=== PATIENT | female | born 1940 | race Caucasian/White ===

== ENCOUNTER 2019-02-09 02:18 | Outpatient (CLI) | payer MEDICARE, OTHER, SELFPAY ==
[2019-02-09 09:12] LABS: HCT 42.4 % (36.0-46.0); HGB 14.1 g/dL (12.0-15.5); Mean Corp. HGB Concentration 33.3 g/dL (32.0-36.0); Mean Corpuscular Hemoglobin 29.7 pg (27.0-33.0); Mean Corpuscular Volume 89.3 fL (80-95); Mean Platelet Volume 10.2 fL (8.0-11.0); Platelet Count 221 x1000/uL (130-400); RBC 4.75 m/cumm (4.00-5.20); RBC Distribution Width 13.9 % (11.7-14.6); White Blood Cell Count 4.72 k/cumm (4.4-10.8)
[2019-02-09 10:27] LABS: TSH (W/Ref FT4) 0.83 uIU/mL (0.358-3.74)
[2019-02-09 10:43] LABS: ALT 24 U/L (12-78); AST 11 U/L (15-37); Albumin 3.4 g/dL (3.4-5.0); Alkaline Phosphatase 110 U/L (46-116); Anion Gap 8.7 mmol/L (3-11); BUN 15 mg/dL (7-18); Bilirubin, Total 0.8 mg/dL (0.2-1.0); CO2 28.3 mmol/L (21.0-32.0); CREATININE 0.88 mg/dL (0.55-1.02); Calcium 8.7 mg/dL (8.5-10.1); Chloride 107 mmol/L (98-107); Cholesterol 156 mg/dL (50-200); Glucose 102 mg/dL (70-100); HDL Cholesterol 72 mg/dL (40-60); LDL CHOLESTEROL 68 mg/dL (<100); Potassium 4.2 mmol/L (3.5-5.1); Sodium 144 mmol/L (136-145); Triglyceride 47 mg/dL (30-150); Vitamin B12 893 pg/mL (193-986)
== END 2019-02-09 02:38 ==
PROVIDERS: PCP Student in an Organized Health Care Education/Training Program; Visit Provider Student in an Organized Health Care Education/Training Program
DX: I10 Essential (primary) hypertension (principal); F31.9 Bipolar disorder, unspecified; G47.9 Sleep disorder, unspecified; R53.83 Other fatigue; M79.671 Pain in right foot
CPT/HCPCS: 80053; 80061; 83721; 85027; 82607; 84443

== ENCOUNTER → 2019-03-15 09:14 | Outpatient (BNVA) | payer MEDICARE, OTHER, SELFPAY | PROVIDERS: PCP Student in an Organized Health Care Education/Training Program; Referring Provider Student in an Organized Health Care Education/Training Program; Visit Provider Orthopaedic Surgery | DX: M75.101 Unspecified rotator cuff tear or rupture of right shoulder, not specified as traumatic (principal); M75.102 Unspecified rotator cuff tear or rupture of left shoulder, not specified as traumatic; I10 Essential (primary) hypertension | CPT/HCPCS: 20610; 99211; 99213; J1040 ==

== ENCOUNTER 2019-04-06 19:36 | Emergency (ER) | payer MEDICARE, OTHER, SELFPAY ==
[2019-04-06 19:46] VITALS: BP 152/81; PULSE 69; RESP 16; TEMP 36.9; O2SAT 96
--- NOTE | 2019-04-06 20:37 | ED.GENADUL_ITS ---
Discharge Plan Disposition Patient Disposition: HOME Condition: Good Discharge Details Chief Complaint: Orthopedic Clinical Impression: Fracture of toe of right foot Primary Care Provider: Jes Whitney ED Provider: Geraldo Elizabeth Meds and New Rx's Prescriptions: Continued mirtazapine [Remeron] 15 mg tablet 15 mg PO DAILY Qty: 90 RF: 4 omega-3 fatty acids-fish oil 1 EACH capsule 1 cap PO DAILY RF: 0 CALTRATE-600 WITH VIT D TAB 1 EACH tablet 1 tab PO DAILY RF: 0 vitamin B complex [B Complex-Vitamin B12] 1 EACH tablet 2 ea PO DAILY Qty: 180 RF: 0 Varicella-Zoster Ge/As01b/Pf [Shingrix Vial Kit] 50 MCG INJ 50 mcg IM ONCE Qty: 1 RF: 0 atorvastatin 10 mg tablet 10 mg PO DAILY Qty: 90 RF: 3 levothyroxine 75 mcg tablet 75 mcg PO DAILY Qty: 90 RF: 3 losartan-hydrochlorothiazide 50-12.5 mg tablet 1 tab PO DAILY Qty: 90 RF: 3 lamotrigine 100 mg tablet 100 mg PO BID Qty: 180 RF: 1 Discharge Instructions Additional Instructions: Jessica tape toes together with padding in between as I have done. Wear the postop boot. Ice for pain and swelling. Tylenol or Motrin for pain. Follow-up with orthopedics. Return to ED if problems. Referrals: Yefri Jang MD [ [facility] STAFF PHYSICIAN] - Discharge Data Discharge Date/Time-TO BE ENTERED AT DEPARTURE: 04/06/19 21:36 Medical Decision Making X-ray was obtained of the right foot. There is a fracture of the proximal phalanx of the big toe. It is intra-articular but at this point is well aligned. 2 x 2 gauze placed between her big toe and second toe. Toes were jessica taped together. Postop shoe ordered. Case discussed briefly with Dr. Jang. He looked at the x-rays and briefly saw the patient. She may weight- bear as tolerated with the postop shoe. Follow-up with orthopedics in a couple of weeks. HPI General Mode of arrival: ambulatory . Date/Time Provider Initiated Documentation: 04/06/19 20:34 . Limitations to Documentation: no limitations . Information obtained by: patient . HPI Narrative: Patient presents to ED with right big toe pain and swelling. She reports missing the last step on her stairs yesterday and her foot buckled under her. She reports that her big toe was turned inward over the tops of her other toes on the right foot. She was slowly able to eventually put a flip-flop on which seem to straighten the toe out a little bit. Today she had to mow her lawn which she did accomplish. She states that seemed to make the toe even straighter. However her friends noticed her foot tonight with it being black and blue and swollen and told her she should come into the ED. Related Data Home Medications Medication Instructions Recorded Confirmed Caltrate-600 With Vit D Tab 1 tab PO DAILY 12/31/12 03/15/19 omega-3 fatty acids-fish oil 1 cap PO DAILY 12/31/12 04/06/19 vitamin B complex [B 2 ea PO DAILY #180 tab-cap 03/05/18 04/06/19 Complex-Vitamin B12] mirtazapine 15 mg tablet 15 mg PO DAILY #90 tab 08/20/18 03/15/19 atorvastatin 10 mg tablet 10 mg PO DAILY #90 tab 08/25/18 04/06/19 levothyroxine 75 mcg tablet 75 mcg PO DAILY #90 tab 08/25/18 04/06/19 losartan 50 mg-hydrochlorothiazide 1 tab PO DAILY #90 tab-cap 11/26/18 04/06/19 12.5 mg tablet lamotrigine 100 mg tablet 100 mg PO BID #180 tab-cap 03/22/19 04/06/19 Previous Rx's Medication Instructions Recorded vitamin B complex [B 2 ea PO DAILY #180 tab-cap 03/05/18 Complex-Vitamin B12] mirtazapine 15 mg tablet 15 mg PO DAILY #90 tab 08/20/18 atorvastatin 10 mg tablet 10 mg PO DAILY #90 tab 08/25/18 levothyroxine 75 mcg tablet 75 mcg PO DAILY #90 tab 08/25/18 losartan 50 mg-hydrochlorothiazide 1 tab PO DAILY #90 tab-cap 11/26/18 12.5 mg tablet lamotrigine 100 mg tablet 100 mg PO BID #180 tab-cap 03/22/19 Allergies Allergy/AdvReac Type Severity Reaction Status Date / Time acetaminophen AdvReac Intermediate weird Verified 02/09/19 11:05 [From Excedrin Migraine] feeling aspirin AdvReac Intermediate weird Verified 02/09/19 11:05 [From Excedrin Migraine] feeling caffeine AdvReac Intermediate weird Verified 02/09/19 11:05 [From Excedrin Migraine] feeling lisinopril AdvReac Intermediate dry cough Verified 02/09/19 11:05 lithium AdvReac Intermediate balance Verified 02/09/19 11:05 disturbance fluoxetine HCl [From Prozac] AdvReac Mild Dizzy, Verified 02/09/19 11:05 Body felt strange trazodone AdvReac Unknown dry heaves Verified 02/09/19 11:05 General Stated Complaint: Orthopedic MIGUEL: 4 Review of Systems Review of Systems As documented in HPI otherwise negative as below. Const: no fever, chills, weakness Resp: no cough, SOB, pleuritic pain CV: no CP, diaphoresis, edema, syncope GI: no abdominal pain, nausea, vomiting, diarrhea Neuro: no headache, numbness, focal weakness, confusion PFSH Medical History Bipolar 1 disorder HTN (hypertension) Hypothyroidism Surgical History Colonoscopy - IV Sedation (09/16/16) Skin Cancer Removal carpal tunnel release melanoma (09/28/15) Family History Mother No problems noted. Father No problems noted. 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 physical activity do you participate in: walking Duration: 15-30 minutes/day Frequency: 3-4 times per week Seatbelt use: always Helmet use: Yes Drive intox or ride w/intox electric pile driver operator: No Water heater temp set <120 deg: Yes Working smoke detector in home: Yes Fire extinguisher in home: Yes Carbon monox detector in home: No Firearms in home: Yes Firearms unloaded and locked: Yes Do you feel safe at home: Yes Do you feel safe in your relationship?: Yes Victim of physical abuse: No Victim of emotional abuse: Yes ( can be difficult at times ) Victim of sexual abuse: No Would you like helpful sources: No Exam Const General: cooperative and no acute distress Orientation: alert and oriented x3 Skin General skin exam: ecchymosis Wounds: no wounds Extrem Other: The right foot has significant swelling and ecchymosis to the big toe itself. It is swollen with decreased range of motion due to the swelling. She has no tenderness in the foot itself. The other toes are unremarkable. Sensation is intact. Course Vital Signs Temperature 98.4 F 04/06/19 19:46 Pulse 69 04/06/19 19:46 Respiratory Rate 16 04/06/19 19:46 Blood Pressure 152/81 H 04/06/19 19:46 Pulse Oximetry 96 04/06/19 19:46 Temperature 98.4 F 04/06/19 19:46 Temperature Source Tympanic 04/06/19 19:46 Pulse 69 04/06/19 19:46 Respiratory Rate 16 04/06/19 19:46 Respiratory Effort Non-Labored 04/06/19 19:55 Blood Pressure 152/81 H 04/06/19 19:46 Pulse Oximetry 96 04/06/19 19:46 Pain Level 8 04/06/19 19:46 Comment 04/06/19 19:46
--- NOTE | 2019-04-06 20:45 | DI.RAD_ITS ---
SYMPTOM/DIAGNOSIS: TRAUMA, BRUISE, SWELLING RIGHT FOOT: Three views. There is a comminuted fracture involving the distal aspect of the proximal phalanx of the great toe. The fracture shows mild displacement and involves the interphalangeal joint. No other fracture or dislocation is seen. There are mild degenerative changes of the foot. There is soft tissue swelling of the great toe. IMPRESSION: Comminuted intra-articular, mildly displaced fracture involving the proximal phalanx of the great toe.
--- NOTE | 2019-04-06 21:09 | DI.VRAD_ITS ---
EXAM: XR Right Foot Complete EXAM DATE/TIME: 04/06/2019 8:34 PM CLINICAL HISTORY: 78 years old, female; Injury or trauma; Fall; Initial encounter; Blunt trauma; Injury date: 04/05/19; Injury details: Right foot trauma yesterday, swelling and bruising right great toe. TECHNIQUE: Imaging protocol: XR Right foot. Views: 3 or more views. COMPARISON: No relevant prior studies available. FINDINGS: Bones/joints: Oblique comminuted fracture extending to joint space is distal first proximal phalanx. Bifid sesamoid bone immediately beneath head of first metatarsal favored to be a variant of development. No subluxation. Hammertoe deformities of second through fifth digits. Bones are well-mineralized. Soft tissues: Soft tissue swelling in the great toe. Vasculature: Vascular calcifications. IMPRESSION: Fracture of first proximal phalanx. Dictated and Authenticated by: William Ryan MD. Ordering:MEENU Chow MD
--- NOTE | 2019-04-06 21:13 | NUR.NOTE ---
Nursing Note: Placed women's large walking shoe on r foot after dr. socorro lopez taped toes.
[2019-04-06 21:37] VITALS: BP 152/81; PULSE 69; RESP 16; O2SAT 96
--- NOTE | 2019-04-06 22:38 | OCONE_ITS ---
Date of service: 04/06/19 Time of Service: 09:38 History of Present Illness Chief Complaint: Right toe injury Narrative: Jennyfer is a 78-year-old who stepped awkwardly, missing us last step. When she did she hit the medial aspect of the right great toe. This caused the toe to go into an acute valgus position per her report. She slowly working back straight and place her foot into a sandal which help straighten the toe out. She continued to hobble on this foot for 2 days. However, the pain in the swelling became more intense today so she presented to the emergency department. She has had some stiffness and pain in the foot before but has been mild. She denies any numbness or tingling. He has been able to ambulate on her heel primarily. She has notable pain if she tries to move her big toe or pushoff with her big toe. She has had ecchymosis and swelling and redness. Consults Consult date: 04/06/19 Requesting physician: Geraldo Elizabeth Consult Reason Right Great Toe Fracture Assessment and Plan (1) Fracture of proximal phalanx of right great toe: Start date: 04/04/19 Current visit: No Status: Acute Jennyfer is a 78-year-old who suffered an intra-articular fracture of her right great toe proximal phalanx. X-rays performed in the emergency department show the fracture is an oblique fracture of the distal aspect of the proximal phalanx with extension into the IP joint of the great toe. The joint appears congruous without significant step-off. The displacement was likely greater, however, she did the reduction maneuver already on her own. I would encourage her to keep some type of bolster in between the first and second toes to buttress the fracture. We can then jessica tape the great toe to the second toe a nd placed into a postop shoe. She should heal weight-bear. This does have a chance of displacing further but currently instance in a acceptable position. I will see her back in 1 week for repeat x-rays. Qualifiers: Encounter type: initial encounter Fracture type: closed Fracture alignment: displaced Qualified Code(s): S92.411A - Displaced fracture of proximal phalanx of right great toe, initial encounter for closed fracture Review of Systems Review of Systems All systems reviewed & are unremarkable except as noted in HPI and below PFSH Medical History Bipolar 1 disorder HTN (hypertension) Hypothyroidism Surgical History Colonoscopy - IV Sedation (09/16/16) Skin Cancer Removal carpal tunnel release melanoma (09/28/15) Family History Mother No problems noted. Father No problems noted. 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 physical activity do you participate in: walking Duration: 15-30 minutes/day Frequency: 3-4 times per week Seatbelt use: always Helmet use: Yes Drive intox or ride w/intox special events driver: No Water heater temp set <120 deg: Yes Working smoke detector in home: Yes Fire extinguisher in home: Yes Carbon monox detector in home: No Firearms in home: Yes Firearms unloaded and locked: Yes Do you feel safe at home: Yes Do you feel safe in your relationship?: Yes Victim of physical abuse: No Victim of emotional abuse: Yes ( can be difficult at times ) Victim of sexual abuse: No Would you like helpful sources: No Exam Const General: cooperative, healthy appearing, comfortable and no acute distress Nutritional Appearance: average body habitus Orientation: alert, awake and oriented x3 Extrem Other: Evaluation of the right foot shows a hyperemic and swollen right great toe. There is no subungual hematoma. There is pain to palpation. The overall alignment of the great toe appears normal. There is a wedge between the first and second toes but no gross rotational abnormality appreciated. Motion was not tested at this time. Capillary refill less than 2 seconds. Skin is taut and swollen. Results Last Vital Signs Temp 36.9 C 04/06/19 19:46 Pulse 69 04/06/19 21:37 Resp 16 04/06/19 21:37 BP 152/81 H 04/06/19 21:37 Pulse Ox 96 04/06/19 21:37
== END 2019-04-06 21:36 | disposition home or self-care (01) ==
PROVIDERS: Emergency Provider Emergency Medicine; PCP Student in an Organized Health Care Education/Training Program
DX: S92.411A Displaced fracture of proximal phalanx of right great toe, initial encounter for closed fracture (principal); W10.8XXA Fall (on) (from) other stairs and steps, initial encounter; I10 Essential (primary) hypertension
CPT/HCPCS: 28510; 99253; 73630

== ENCOUNTER 2019-04-13 13:53 | Outpatient (CLI) | payer MEDICARE, OTHER, SELFPAY ==
--- NOTE | 2019-04-13 12:54 | DI.RAD_ITS ---
SYMPTOMS/DIAGNOSIS: FX RT GREAT TOE RIGHT FOOT: When compared with the 04/06/19 exam, again noted is the mildly displaced comminuted intra-articular fracture of the proximal phalanx of the great toe. There has been no appreciable change in the apposition or alignment of the fracture when compared with the previous study.
== END 2019-04-13 14:13 ==
PROVIDERS: PCP Student in an Organized Health Care Education/Training Program; Referring Provider Student in an Organized Health Care Education/Training Program; Visit Provider Student in an Organized Health Care Education/Training Program
DX: S92.411A Displaced fracture of proximal phalanx of right great toe, initial encounter for closed fracture (principal); X50.9XXA Other and unspecified overexertion or strenuous movements or postures, initial encounter
CPT/HCPCS: 99213; 73630

== ENCOUNTER → 2019-04-14 13:43 | Outpatient (BNVA) | payer MEDICARE, OTHER, SELFPAY | PROVIDERS: PCP Student in an Organized Health Care Education/Training Program; Referring Provider Student in an Organized Health Care Education/Training Program; Visit Provider Orthopaedic Surgery | DX: M75.82 Other shoulder lesions, left shoulder (principal); M75.81 Other shoulder lesions, right shoulder; Z98.890 Other specified postprocedural states | CPT/HCPCS: 99211; 99213 ==

== ENCOUNTER 2019-04-27 13:21 | Outpatient (CLI) | payer MEDICARE, OTHER, SELFPAY ==
--- NOTE | 2019-04-27 13:07 | DI.RAD_ITS ---
SYMPTOMS/DIAGNOSIS: F/U RIGHT GREAT TOE FX RIGHT FOOT: There has been no change in the apposition or alignment of the fracture involving the distal metaphysis of the proximal phalanx of the great toe. There is nothing to suggest that healing is not progressing satisfactorily at the present time.
== END 2019-04-27 13:41 ==
PROVIDERS: PCP Student in an Organized Health Care Education/Training Program; Referring Provider Student in an Organized Health Care Education/Training Program; Visit Provider Student in an Organized Health Care Education/Training Program
DX: S92.411A Displaced fracture of proximal phalanx of right great toe, initial encounter for closed fracture (principal); W10.9XXA Fall (on) (from) unspecified stairs and steps, initial encounter
CPT/HCPCS: 99213; 73630

== ENCOUNTER 2019-05-18 14:45 | Outpatient (CLI) | payer MEDICARE, OTHER, SELFPAY ==
--- NOTE | 2019-05-18 14:39 | DI.RAD_ITS ---
SYMPTOMS/DIAGNOSIS: F/U FX RIGHT FOOT: Three views were obtained. The previously described fracture of the proximal phalanx of the great toe is again noted with no gross interval change in alignment of the fracture fragments in comparison with examination of April 27. There appears to be mild callus formation at the fracture site.
== END 2019-05-18 15:05 ==
PROVIDERS: PCP Student in an Organized Health Care Education/Training Program; Referring Provider Student in an Organized Health Care Education/Training Program; Visit Provider Student in an Organized Health Care Education/Training Program
DX: S92.411D Displaced fracture of proximal phalanx of right great toe, subsequent encounter for fracture with routine healing (principal); W10.8XXD Fall (on) (from) other stairs and steps, subsequent encounter
CPT/HCPCS: 99213; 73630

== ENCOUNTER 2019-07-30 08:45 | Emergency (ER) | payer MEDICARE, OTHER, SELFPAY ==
[2019-07-30 08:51] VITALS: BP 173/101; PULSE 87; RESP 18; TEMP 36.6; O2SAT 98
[2019-07-30 09:00] VITALS: BP 164/85
--- NOTE | 2019-07-30 09:25 | ED.GENADUL_ITS ---
Discharge Plan Disposition Patient Disposition: HOME Condition: Stable Discharge Details Chief Complaint: Cellulitis Clinical Impression: Finger infection Primary Care Provider: Jes Whitney ED Provider: Robbie Davenport Home Meds and New Rx's Prescriptions: Continued clindamycin HCl 300 mg capsule 300 mg PO TID Qty: 30 RF: 0 omega-3 fatty acids-fish oil 1 EACH capsule 1 cap PO DAILY RF: 0 CALTRATE-600 WITH VIT D TAB 1 EACH tablet 1 tab PO DAILY RF: 0 vitamin B complex [B Complex-Vitamin B12] 1 EACH tablet 2 ea PO DAILY Qty: 180 RF: 0 Varicella-Zoster Ge/As01b/Pf [Shingrix Vial Kit] 50 MCG INJ 50 mcg IM ONCE Qty: 1 RF: 0 atorvastatin 10 mg tablet 10 mg PO DAILY Qty: 90 RF: 3 levothyroxine 75 mcg tablet 75 mcg PO DAILY Qty: 90 RF: 3 losartan-hydrochlorothiazide 50-12.5 mg tablet 1 tab PO DAILY Qty: 90 RF: 3 lamotrigine 100 mg tablet 100 mg PO BID Qty: 180 RF: 1 Discharge Instructions Instructions: Cellulitis (ED) Additional Instructions: Please do once daily warm soaks and dressing change. Follow-up in clinic for recheck if not improving in 5 days time. Continue clindamycin. May use Tylenol and ibuprofen as needed for pain. Keep the hand above the level of the heart to reduce pain and discomfort from swelling. Return if develop a fever, worsening swelling, or any other acute concern. Medical Decision Making 79-year-old female with 3 days of right ring finger swelling and pain after reaching under a shrub to retrieve a ball. She was placed on clindamycin yesterday in clinic. Now with pointing fluctuance. Consented, cleansed, anesthetized with local 1.5 cc lidocaine. Incised 11 blade with approximately 1 to 2 cc of purulent fluid. Cultured and sent to lab. We will have her continue the clindamycin. She will do daily soaks and dressing changes at home. She understands return precautions. HPI General Mode of arrival: ambulatory . Date/Time Provider Initiated Documentation: 07/30/19 09:02 . Limitations to Documentation: no limitations . Information obtained by: patient . History of Present Illness 79 year old F presents to the emergency department with the chief complaint of Right hand infection x3 days, on antibiotics 1 day, Quality is described as dull, and is localized to the right and upper extremity. Patient reports no radiation. Patient started experiencing this hour(s) and it has been constant. No relieving factors improve symptom(s), No exacerbating factors reported . Patient notes no other symptoms.. Patient did receive the following treatments prior to arrival, other (Clindamycin x1 day) Related Data Home Medications Medication Instructions Recorded Confirmed Caltrate-600 With Vit D Tab 1 tab PO DAILY 12/31/12 07/29/19 omega-3 fatty acids-fish oil 1 cap PO DAILY 12/31/12 07/30/19 vitamin B complex [B 2 ea PO DAILY #180 tab-cap 03/05/18 07/30/19 Complex-Vitamin B12] atorvastatin 10 mg tablet 10 mg PO DAILY #90 tab 08/25/18 07/30/19 levothyroxine 75 mcg tablet 75 mcg PO DAILY #90 tab 08/25/18 07/30/19 losartan 50 mg-hydrochlorothiazide 1 tab PO DAILY #90 tab-cap 11/26/18 07/30/19 12.5 mg tablet lamotrigine 100 mg tablet 100 mg PO BID #180 tab-cap 03/22/19 07/30/19 clindamycin HCl 300 mg capsule 300 mg PO TID #30 cap 07/29/19 07/30/19 Previous Rx's Medication Instructions Recorded vitamin B complex [B 2 ea PO DAILY #180 tab-cap 03/05/18 Complex-Vitamin B12] atorvastatin 10 mg tablet 10 mg PO DAILY #90 tab 08/25/18 levothyroxine 75 mcg tablet 75 mcg PO DAILY #90 tab 08/25/18 losartan 50 mg-hydrochlorothiazide 1 tab PO DAILY #90 tab-cap 11/26/18 12.5 mg tablet lamotrigine 100 mg tablet 100 mg PO BID #180 tab-cap 03/22/19 clindamycin HCl 300 mg capsule 300 mg PO TID #30 cap 07/29/19 Allergies Allergy/AdvReac Type Severity Reaction Status Date / Time acetaminophen AdvReac Intermediate weird Verified 07/30/19 08:54 [From Excedrin Migraine] feeling aspirin AdvReac Intermediate weird Verified 07/30/19 08:54 [From Excedrin Migraine] feeling caffeine AdvReac Intermediate weird Verified 07/30/19 08:54 [From Excedrin Migraine] feeling lisinopril AdvReac Intermediate dry cough Verified 07/30/19 08:54 lithium AdvReac Intermediate balance Verified 07/30/19 08:54 disturbance fluoxetine HCl [From Prozac] AdvReac Mild Dizzy, Verified 07/30/19 08:54 Body felt strange trazodone AdvReac Unknown dry heaves Verified 07/30/19 08:54 General Stated Complaint: Cellulitis MIGUEL: 4 Review of Systems Narrative: No fever, chills, drainage. 4 systems reviewed and otherwise negative [facility] Medical History Bipolar 1 disorder HTN (hypertension) Hypothyroidism Surgical History carpal tunnel release L wrist Colonoscopy - IV Sedation (09/16/16) melanoma (09/28/15) Penny Driscoll nasolabial fold Skin Cancer Removal Dr Jacobsen, multiple excisions Family History Mother No problems noted. Father , [place] at age 74. No problems noted. 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 physical activity do you participate in: walking Duration: 15-30 minutes/day Frequency: 3-4 times per week Seatbelt use: always Helmet use: Yes Drive intox or ride w/intox airport driver: No Water heater temp set <120 deg: Yes Working smoke detector in home: Yes Fire extinguisher in home: Yes Carbon monox detector in home: No Firearms in home: Yes Firearms unloaded and locked: Yes Do you feel safe at home: Yes Do you feel safe in your relationship?: Yes Victim of physical abuse: No Victim of emotional abuse: Yes ( can be difficult at times ) Victim of sexual abuse: No Would you like helpful sources: No Exam Narrative Exam Narrative: GEN: awake, alert, oriented 3. Pleasant, well groomed, interactive. HEAD: Normocephalic, atraumatic ENT: Mucous membranes moist, oropharynx unremarkable, External ear exam unremarkable EYES: PERRL, EOMI NECK: Full ROM, no STAN, no menigismus EXT: Full ROM, right ring finger dorsal surface with erythema and pointing fluctuance is tender to the touch. Neuro: Grossly normal neurologic exam, conversant, interactive. Psych: Speech fluent, thoughts congruent, affect normal Course Vital Signs Vital signs: Vital Signs Temperature 36.6 C 07/30/19 08:51 Pulse 87 07/30/19 08:51 Respiratory Rate 18 07/30/19 08:51 Blood Pressure 173/101 H 07/30/19 08:51 Pulse Oximetry 98 07/30/19 08:51 Temperature 36.6 C 07/30/19 08:51 Temperature Source Skin 07/30/19 08:51 Pulse 87 07/30/19 08:51 Respiratory Rate 18 07/30/19 08:51 Respiratory Effort Non-Labored 07/30/19 08:57 Blood Pressure 164/85 H 07/30/19 09:00 Pulse Oximetry 98 07/30/19 08:51 Pain Level 5 07/30/19 08:51 Procedures Abscess I/D Site: Hand Side (if applicable): Right Local Anesthetic: Lidocaine 1% Amount of anesthesia used (mL): 1.5 Technique: Incised with #11 Blade Irrigation: Yes Packing used?: Plain
--- NOTE | 2019-08-02 08:37 | NUR.NOTE ---
referral faxed to [facility] Internal Medicine, Dr. Scruggs.Nursing Note:
--- NOTE | 2019-08-07 15:45 | W.ED.FU ---
Received skin culture results growing enterococcus gallinarum, sensitive to ampicillin and ciprofloxacin and resistant to vancomycin. Patient received incision and drainage here in the emerge department and was continued on clindamycin. Clindamycin sensitivities not available. I called and spoke with the patient's (patient was not available to speak) - he noted that hand seems much improved. I did provide contact number for the emergency department should she have any questions or concerns.
== END 2019-07-30 09:36 | disposition home or self-care (01) ==
PROVIDERS: Emergency Provider Emergency Medicine; PCP Student in an Organized Health Care Education/Training Program
DX: L03.011 Cellulitis of right finger (principal); I10 Essential (primary) hypertension
CPT/HCPCS: 10060; 87077; 99283; 87070; 87186

== ENCOUNTER 2019-09-12 11:37 | Outpatient (CLI) | payer MEDICARE, OTHER, SELFPAY ==
--- NOTE | 2019-09-12 11:40 | DI.RAD_ITS ---
EXAM: XR ABDOMEN FLAT PLATE INDICATION: assess bowel/gas pattern; concern c. diff, diarrhea, R19.7. COMPARISON: No exams were available for comparison TECHNIQUE: 2D digital imaging was performed. FINDINGS: There is a moderate quantity of stool seen throughout the colon. There is no evidence of wall thicke mark or abnormal colonic or small bowel distention. Degenerative changes are seen in the spine. IMPRESSION: No acute abnormality.
== END 2019-09-12 11:57 ==
PROVIDERS: PCP Student in an Organized Health Care Education/Training Program; Visit Provider Nurse Practitioner Adult Health
DX: R19.7 Diarrhea, unspecified (principal)
CPT/HCPCS: 74018; 87324

== ENCOUNTER 2019-09-13 07:53 | Outpatient (CLI) | payer MEDICARE, OTHER, SELFPAY ==
[2019-09-13 08:42] LABS: Abs Immature Grans 0.04 k/cumm (0.0-0.09); Absolute Basophil Count 0.02 k/cumm (0.0-0.2); Absolute Eosinophil Count 0.13 k/cumm (0.0-0.7); Absolute Lymphocyte Count 0.97 k/cumm (1.2-3.4); Absolute Monocyte Count 0.89 k/cumm (0.11-0.7); Absolute Neutrophil Count 9.18 k/cumm (1.2-6.7); Basophils % 0.2; Eosinophils % 1.2; HCT 40.7 % (36.0-46.0); HGB 13.3 g/dL (12.0-15.5); Immature Grans % 0.4; Lymphocytes % 8.6; Mean Corp. HGB Concentration 32.7 g/dL (32.0-36.0); Mean Corpuscular Hemoglobin 28.7 pg (27.0-33.0); Mean Corpuscular Volume 87.7 fL (80-95); Mean Platelet Volume 9.6 fL (8.0-11.0); Monocytes % 7.9; Neutrophils % 81.7; Platelet Count 235 x1000/uL (130-400); RBC 4.64 m/cumm (4.00-5.20); RBC Distribution Width 13.5 % (11.7-14.6); White Blood Cell Count 11.24 k/cumm (4.4-10.8)
== END 2019-09-13 08:13 ==
PROVIDERS: PCP Student in an Organized Health Care Education/Training Program; Visit Provider Nurse Practitioner Adult Health
DX: A04.72 Enterocolitis due to Clostridium difficile, not specified as recurrent (principal)
CPT/HCPCS: 36415; 85025

== ENCOUNTER 2019-09-16 10:26 | Outpatient (CLI) | payer MEDICARE, OTHER, SELFPAY ==
[2019-09-16 11:07] LABS: Abs Immature Grans 0.04 k/cumm (0.0-0.09); Absolute Basophil Count 0.02 k/cumm (0.0-0.2); Absolute Eosinophil Count 0.18 k/cumm (0.0-0.7); Absolute Lymphocyte Count 0.92 k/cumm (1.2-3.4); Absolute Monocyte Count 0.83 k/cumm (0.11-0.7); Absolute Neutrophil Count 8.25 k/cumm (1.2-6.7); Basophils % 0.2; Eosinophils % 1.8; HCT 41.2 % (36.0-46.0); HGB 13.3 g/dL (12.0-15.5); Immature Grans % 0.4; Mean Corp. HGB Concentration 32.3 g/dL (32.0-36.0); Mean Corpuscular Hemoglobin 28.4 pg (27.0-33.0); Mean Platelet Volume 9.5 fL (8.0-11.0); Monocytes % 8.1; Neutrophils % 80.5; Platelet Count 288 x1000/uL (130-400); RBC 4.68 m/cumm (4.00-5.20); RBC Distribution Width 13.3 % (11.7-14.6); White Blood Cell Count 10.24 k/cumm (4.4-10.8)
[2019-09-16 11:40] LABS: ALT 26 U/L (14-59); AST 18 U/L (15-37); Alkaline Phosphatase 136 U/L (46-116); Anion Gap 7.6 mmol/L (3-11); BUN 9 mg/dL (7-18); Bilirubin, Total 0.7 mg/dL (0.2-1.0); CO2 30.4 mmol/L (21.0-32.0); CREATININE 0.73 mg/dL (0.55-1.02); Calcium 8.7 mg/dL (8.5-10.1); Chloride 105 mmol/L (98-107); Glucose 117 mg/dL (74-106); Potassium 4.1 mmol/L (3.5-5.1); Sodium 143 mmol/L (136-145); Total Protein 5.7 g/dL (6.4-8.2)
== END 2019-09-16 10:46 ==
PROVIDERS: PCP Student in an Organized Health Care Education/Training Program; Visit Provider Nurse Practitioner Adult Health
DX: D72.829 Elevated white blood cell count, unspecified (principal); A04.72 Enterocolitis due to Clostridium difficile, not specified as recurrent
CPT/HCPCS: 36415; 80053; 85025

== ENCOUNTER 2019-09-30 12:26 | Outpatient (CLI) | payer MEDICARE, OTHER, SELFPAY ==
[2019-09-30 13:23] LABS: Abs Immature Grans 0.02 k/cumm (0.0-0.09); Absolute Basophil Count 0.02 k/cumm (0.0-0.2); Absolute Eosinophil Count 0.16 k/cumm (0.0-0.7); Absolute Lymphocyte Count 1.15 k/cumm (1.2-3.4); Absolute Monocyte Count 0.76 k/cumm (0.11-0.7); Absolute Neutrophil Count 8.71 k/cumm (1.2-6.7); Basophils % 0.2; Eosinophils % 1.5; HCT 43.5 % (36.0-46.0); HGB 14.2 g/dL (12.0-15.5); Immature Grans % 0.2 %; Lymphocytes % 10.6; Mean Corp. HGB Concentration 32.6 g/dL (32.0-36.0); Mean Corpuscular Hemoglobin 28.7 pg (27.0-33.0); Mean Corpuscular Volume 87.9 fL (80-95); Neutrophils % 80.5; Platelet Count 300 x1000/uL (130-400); RBC 4.95 m/cumm (4.00-5.20); White Blood Cell Count 10.82 k/cumm (4.4-10.8)
== END 2019-09-30 12:46 ==
PROVIDERS: PCP Student in an Organized Health Care Education/Training Program; Visit Provider Nurse Practitioner Adult Health
DX: A04.71 Enterocolitis due to Clostridium difficile, recurrent (principal)
CPT/HCPCS: 36415; 85025

== ENCOUNTER 2022-01-08 02:59 | Outpatient (CLI) | payer MEDICARE, SELFPAY ==
[2022-01-08 14:02] LABS: ALT 23 U/L (14-59); AST 12 U/L (15-37); Albumin 3.9 g/dL (3.4-5.0); Alkaline Phosphatase 152 U/L (46-116); BUN 15 mg/dL (7-18); Bilirubin, Total 1.6 mg/dL (0.2-1.0); CREATININE 0.8 mg/dL (0.55-1.02); Calcium 9.6 mg/dL (8.5-10.1); Calculated LDL 82 mg/dL (<100); Chloride 104 mmol/L (98-107); Cholesterol 167 mg/dL (<200); Glucose 97 mg/dL (74-106); HDL Cholesterol 70 mg/dL (40-60); Potassium 3.8 mmol/L (3.5-5.1); Sodium 143 mmol/L (136-145); TSH (W/Ref FT4) 0.45 uIU/mL (0.36-3.74); Triglyceride 76 mg/dL (<150)
== END 2022-01-08 03:00 | disposition home or self-care (01) ==
LOC: LBO 03:00
PROVIDERS: PCP Student in an Organized Health Care Education/Training Program; Visit Provider Student in an Organized Health Care Education/Training Program
DX: I10 Essential (primary) hypertension (principal); E03.9 Hypothyroidism, unspecified; Z13.220 Encounter for screening for lipoid disorders
CPT/HCPCS: 36415; 80053; 80061; 84443

== ENCOUNTER 2022-10-10 00:24 | Outpatient (CLI) | payer MEDICARE, SELFPAY ==
--- NOTE | 2022-10-10 07:15 | DI.RAD_ITS ---
Exam(s) XR HIP PELVIS ADULT BL EXAM: XR HIP PELVIS ADULT BL CLINICAL HISTORY: evaluate for stenosis; arthritis,acute bilat low back pain,hip pain,m25.559. TECHNIQUE: 2D digital imaging was performed of the pelvis and bilateral hips. Five images were obta ined. AP pelvis and lateral views of both hips were obtained. COMPARISON: No exams were available for comparison FINDINGS: BONES: No acute fracture is present. No bony destructive lesion is seen. JOINTS: No dislocation present. Mild degenerative changes are seen in the hips bilaterally with joint space narrowing and acetabular spurring. The sacroiliac joints of this pubis are unremarkable. The re are moderate degenerative changes seen in the lower lumbar spine. SOFT TISSUE: Normal. 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 DATA REPOSITORY: RADIATION DOSE DELIVERED:
--- NOTE | 2022-10-10 07:15 | DI.RAD_ITS ---
Exam(s) XR SACRUM EXAM: XR SACRUM CLINICAL HISTORY: evaluate for stenosis; arthritis,acute low back pain,hip pain, m25.559. TECHNIQUE: 2D digital imaging was performed. Three images were obtained. COMPARISON: No exams were available for comparison FINDINGS: BONES: No acute fracture is present. No bony destructive lesion is seen. JOINTS: No dislocation present. There are mild degenerative changes seen at the left sacroiliac joint . Moderate degenerative changes are seen in the visualized lumbar spine. SOFT TISSUE: Vascular calcifications are present. IMPRESSION: 1. Mild degenerative changes of the left SI joint. 2. Moderate degenerative changes in the visualized lumbar spine. DATA REPOSITORY: RADIATION DOSE DELIVERED:
--- NOTE | 2022-10-10 07:15 | DI.RAD_ITS ---
Exam(s) XR SACROILIAC JOINTS EXAM: XR SACROILIAC JOINTS CLINICAL HISTORY: evaluate for stenosis; arthritis,acute low back pain, hip pain, m25.559. TECHNIQUE: 2D digital imaging was performed. Four images were obtained. COMPARISON: No exams were available for comparison FINDINGS: Bones: No fracture is present. No bony destructive lesion is seen. Alignment is satisfactory. SI Joint:No fusions or erosions are seen. There are mild degenerative changes seen in the left SI paige int. Soft Tissue: Normal. 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 DATA REPOSITORY: RADIATION DOSE DELIVERED:
== END 2022-10-10 00:44 ==
LOC: DI 00:24
PROVIDERS: PCP Student in an Organized Health Care Education/Training Program; Visit Provider Student in an Organized Health Care Education/Training Program
DX: M16.0 Bilateral primary osteoarthritis of hip (principal); M54.40 Lumbago with sciatica, unspecified side; M47.816 Spondylosis without myelopathy or radiculopathy, lumbar region
CPT/HCPCS: 73521; 72202; 72220

== ENCOUNTER → 2022-12-11 08:21 | Outpatient (BNVA) | payer MEDICARE, SELFPAY | PROVIDERS: PCP Student in an Organized Health Care Education/Training Program; Referring Provider Student in an Organized Health Care Education/Training Program; Visit Provider Physical Therapy Assistant | DX: Z12.11 Encounter for screening for malignant neoplasm of colon (principal); Z86.010 Personal history of colon polyps; Z80.0 Family history of malignant neoplasm of digestive organs ==

== ENCOUNTER 2023-07-01 03:41 | Outpatient (CLI) | payer MEDICARE, SELFPAY ==
[2023-07-01 08:20] LABS: HGB 14.7 g/dL (11.2-15.7)
[2023-07-01 09:00] LABS: ALT 29 U/L (14-59); AST 18 U/L (15-37); Albumin 3.7 g/dL (3.4-5.0); Alkaline Phosphatase 113 U/L (46-116); Anion Gap 6.6 mmol/L (3-11); BUN 16 mg/dL (7-18); Bilirubin, Total 1.1 mg/dL (0.2-1.0); CO2 29.4 mmol/L (21.0-32.0); CREATININE 0.9 mg/dL (0.55-1.02); Calcium 9.5 mg/dL (8.5-10.1); Calculated LDL 91 mg/dL (<100); Chloride 104 mmol/L (98-107); Cholesterol 190 mg/dL (<200); Estimated GFR 64.23 (mL/min/1.73m2); Glucose 118 mg/dL (74-106); HDL Cholesterol 83 mg/dL (40-60); Potassium 3.5 mmol/L (3.5-5.1); Sodium 140 mmol/L (136-145); TSH (W/Ref FT4) 0.85 uIU/mL (0.36-3.74); Total Protein 6.9 g/dL (6.4-8.2); Triglyceride 84 mg/dL (<150)
== END 2023-07-01 03:42 | disposition home or self-care (01) ==
LOC: LBO 03:41
PROVIDERS: PCP Student in an Organized Health Care Education/Training Program; Referring Provider Student in an Organized Health Care Education/Training Program; Visit Provider Student in an Organized Health Care Education/Training Program
DX: I10 Essential (primary) hypertension (principal); Z13.220 Encounter for screening for lipoid disorders; E03.9 Hypothyroidism, unspecified; E86.0 Dehydration
CPT/HCPCS: 36415; 80053; 80061; 84443; 85018

== ENCOUNTER 2023-10-16 16:11 | Outpatient (REF) | payer MEDICARE, SELFPAY ==
--- NOTE | 2023-10-16 15:30 | SKI_PTH ---
PATIENT: Jennyfer Crowley LOC: [facility] U#:[id number] AGE/SX: 83/F ROOM: RE10/16/[address]: Hi Brooks DO : 1940 BED: DIS: 10/16/2023 SPEC #: [id number] RECD: 10/16/23 17:50 STATUS: EL REQ #: [id number] PACO: 10/16/23 15:[address]: Hi Brooks DEPT: Surgical Specimen RECD BY: Camille Zaman ENTERED: 10/16/23 17:51 SP TYPE: SKI OTHR DR: Jes Whitney DO Tissues: 1 - SKIN BIOPSY(SHAVE/PUNCH) 2 - SKIN BIOPSY(SHAVE/PUNCH) Procedures: SKIN LEVEL 4 Comments: [id number]
== END 2023-10-16 16:12 | disposition home or self-care (01) ==
LOC: LBN 16:11
PROVIDERS: PCP Student in an Organized Health Care Education/Training Program; Visit Provider Otolaryngology Otolaryngology/Facial Plastic Surgery
DX: C44.311 Basal cell carcinoma of skin of nose (principal); L82.1 Other seborrheic keratosis
CPT/HCPCS: 88305

== ENCOUNTER 2024-04-28 04:16 | Outpatient (CLI) | payer MEDICARE, SELFPAY ==
--- OUTSIDE RECORDS SUMMARY | 2024-04-28 04:19 | XMS_ITS | Encounter Summary ---
Author Organization [facility] Address [address] [place] [address] Care Team Providers Care Design Painter Name Role Phone Kianna Dye NP Primary Care Provider Reason for Visit * Reason Comments Suture / Staple Removal S/p flap takedow n on the right nasal ala by Dr. Randall Chinchilla on 09/24/2011 Encounter Details Date Type Department Care Team (Late st Contact Info) Description 10/01/2011 9:30 EST Office Visit [facility] Dermatology 5th Floor [facility] [address] [place] [address] Unknown, Provider, Nursing Team, [facility] Dermatology Mohs Squamous cell carcinoma, face (Primary Dx) Social History Tobacco Use Types Packs/Day Years Used Date Smoking Tobacco: Never Alcohol Use Standard Drinks/Week Comments Yes 0 (1 standard drink = 0.6 oz pur e alcohol) Sex and Gender Information Value Date Recorded Sex Assigned at Not on file Gender Identity Not on file Sexual Orientation Not on file documented as of this encounter Patient Instructions * Patient Instructions* Shellie Bob - 10/01/2011 10:04 EST WOUND CARE INSTRUCTIONS for ONE WEEK AFTER SURGERY If there any open or bleeding areas at the scar/graft site you should begin to cover the area with a bandage daily as follows: A) Clean and dry the area with plain tap water using a Qtip or sterile gauze pad. B) Vaseline ointment to any open areas. C) Cover the wound with a band-aid or a sterile non-stick gauze pad and tape D) Repeat instructions above until the wound is completely healed. *Once the bandages are removed, the scar will be red and firm (especially in the lip/chin area). This is normal and will fade in time. It might take 6-12 months. *Massaging the area will help the scar soften and fade quicker. Begin to massage the area one monthafter the bandages have been removed (6 weeks after surgery). To massage apply pressure directly and firmly over the scar with the fingertips and move in a circular motion. Massage the area for a fewminutes several times a day. *About 6-8 weeks after surgery it is not uncommon to see tender 'pimple-like' bumps along the scar.This is normal as the scar continues to mature and the stitches underneath the skin begin to dissolve. Do not pick or squeeze-- this will resolve on its own. Should one break open producing a small amount of drainage, apply polysporin or bacitracin ointment a few times a day until it is completely healed. *Numbness in the surgical area is expected. It might take 12-18 months for the feeling to return tonormal. During this time sensations of itchiness, tingling and occasional sharp pains might be noted. These feelings are normal and will subside once the nerves have completely healed. documented in this encounter Progress Notes * Shellie Bob - 10/01/2011 0944 EST SUTURE REMOVAL NOTE CC: SUTURE REMOVAL Ms. Crowley is status post flap takedown of on the right nasal ala. SUBJECTIVE: Patient reports no concern OBJECTIVE: There were no vitals taken for this visit. Wound edges: well-approximated Wound Site: Healing as expected Drainage: none Graft site: no graft done [place] site: N/A Flap site: fully approximated PLAN: Wound cleansed from center outward with normal saline Sutures: all sutures removed Dressing: left open to air FOLLOW UP Patient advised to return to follow-up care in 6 months or sooner if concern Post suture removal wound care instructions given to patient. I was supervised by Dr. Ian Crockett who was present and immediately available in the office suite. Shellie Bob 10/01/2011 9:46 documented in this encounter Plan of Treatment Not on file documented as of this encounter Visit Diagnoses Diagnosis Squamous cell carcinoma, face- Primary Squamous cell carcinoma of skin of other and unspecified parts of face documented in this encounter Care Teams Design Painter Relationship Specialty Start Date End Date Kianna Dye NP [address] [place] [address] [address] [place] [id number] PCP - General 09/01/11 documented as of this encounter
--- OUTSIDE RECORDS SUMMARY | 2024-04-28 04:19 | XMS_ITS | Referral Summary ---
Author Organization [facility] Address [address] [place] [address] Care Team Providers Care Control Systems Specialist Name Role Phone iKanna Dye NP Primary Care Provider [phone] Allergies No known active allergies Medications Medication Sig Dispensed Refills Start Date End Date Status levothyroxine (SYNTHROID) 88 mcg tablet Take 88 mcg by mouth daily. Active lamotrigine (LAMICTAL) 100 mg tablet Take 100 mg by mouth 2 times daily. Active citalopram (CELEXA) 10 mg tablet Take 10 mg by mouth 2 times daily. Active clonAZEPAM (KLONOPIN) 0.5 mg tablet Take 0.5 mg by mouth as needed. Active DOCOSAHEXANOIC ACID/EPA (FISH OIL ORAL) Take 2,000 mg by mouth daily. Active CALCIUM ORAL Take 1,200 mg by mouth daily. Active GLUC/CYRUS-MSM#1/C/ARTIS/ JANN/BOR (OSTEO BI-FLEX ORAL) Take by mouth 2 times daily. Active losartan potassium (LOSARTAN ORAL) Take by mouth. Activ e atorvastatin (LIPITOR) 10 mg tablet Take 10 mg by mouth daily. Active Active Problems Problem Noted Date Diagnosed Date History of squamous cell carcinoma of skin 09/10 Overview: Right nasal ala, 2011; Mohs Social History Tobacco Use Types Packs/Day Years Used Date Smoking Tobacco: Never Alcohol Use Standard Drinks/Week Comments Yes 0 (1 standard drink = 0.6 oz pur e alcohol) Interpersonal Safety Answer Date Record ed Physically Hurt Never 04/29/2020 Verbally Threaten Not on file 04/29/2020 Sex and Gender Information Value Date Recorded Sex Assigned at Not on file Gender Identity Not on file Sexual Orientation Not on file Last Filed Vital Signs Vital Sign Reading Time Taken Comments Blood Pressure 160/89 04/14/2018 08 EDT Pulse 63 04/14/2018 08 EDT Temperature 36.1 ??C (96.9 ??F) 04/14/2018 0806 EDT Respiratory Rate - - Oxygen Saturation - - Inhaled Oxygen Concentration - - Weight - - Height - - Body Mass Index - - Functional Status Functional Status Response Date of Assess ment Because of a physical, menta l, or emotional condition, does this person have difficulty doing errands alone such as visiting a doctor's office or shopping? No 04/14/2018 Cognitive Status Response Date of Assessm ent Because of a physical, menta l, or emotional condition, does this person have serious difficulty concentrating, remembering, or making decisions? No 04/14/2018 Plan of Treatment Not on file Care Teams Control Systems Specialist Relationship Specialty Start Date End Date Kianna Dye NP [address] [place] [address] [address] [place] [address] PCP - General 09/01/11
--- OUTSIDE RECORDS SUMMARY | 2024-04-28 04:19 | XMS_ITS | Encounter Summary ---
Author Organization [facility] Address [address] [place] [address] Care Team Providers Care Paste Up Artist Name Role Phone Elzbieta Edwards SHIRRING TENDER Primary Care Provider [phone] Encounter Details Date Type Department Care Team (Late st Contact Info) Description 05/05/2007 Results Only [facility] conversion [address] [place] [address] Elzbieta Edwards, SHIRRING TENDER [address] [place] [address] Social History Tobacco Use Types Packs/Day Years Used Date Smoking Tobacco: Never Assessed Sex and Gender Information Value Date Recorded Sex Assigned at Not on file Gender Identity Not on file Sexual Orientation Not on file documented as of this encounter Plan of Treatment Not on file documented as of this encounter Procedures Procedure Name Priority Date/Time Associated Diagnosis Comments CYTOPATHOLOGY Routine 05/05/2007 0:00 EDT documented in this encounter Results * CYTOPATHOLOGY (05/05/2007 0:00 EDT) Pathology Report: CYTOPATHOLOGY REPORT Reports generated via electronic interface contain original data; however they are lacking the format of the original report. Caution should be taken when reading/interpreti ng unformatted reports. Name: ? JENNYFER BAUTISTA ? Accession #: ? [id number] : ? 1940 (Age: 67) ??F ?Collect Date: ? 05/05/2007 Location: ? [facility] ? Receive Date: ? 05/07/2007 Provider: ?ELZBIETA EDWARDS SHIRRING TENDER Copy to: ? Specimen/Source: ?ThinPrep Pap Test, Source Not Provided, processed on [email or web address] ThinPrep Imaging System, with manual evaluation Last Menstrual Period: ? years Other: ? HPVA - HPV testing requested if ASC-US on the current ThinPrep Pap test. ? SPECIMEN ADEQUACY ? Satisfactory for Evaluation - assessment of transformation zone component not applicable ( e.g. atrophy, vaginal sample, hysterectomy) GENERAL CATEGORIZATION ? Negative for Intraepithelial Lesion or Malignancy ? Document reviewed and electronically signed by: ? AVI Marsh(ASCP) ? Report Date: ??05/11/2007 12:22 End of Report [facility] PERDOMO 05/05/2007 05/07/2007 Elzbieta Edwards NP PATHOLOGY ORDERABLE S [facility] [address] [place] [address] documented in this encounter Visit Diagnoses Not on filedocumented in this encounter Care Teams Paste Up Artist Relationship Specialty Start Date End Date Elzbieta Edwards NP [address] [place] [address] PCP - General 02/28/10 08/31/11 documented as of this encounter
--- OUTSIDE RECORDS SUMMARY | 2024-04-28 04:19 | XMS_ITS | Encounter Summary ---
Author Organization [facility] Address [address] [place] [address] Care Team Providers Care Felt Dyeing Machine Tender Name Role Phone Kianna Dye NP Primary Care Provider Reason for Visit * Reason Comments Wound Check Right nasal ala s/p mohs Encounter Details Date Type Department Care Team (Late st Contact Info) Description 09/11/2011 11:30 EST Office Visit [facility] Dermatology 5th Floor [facility] [address] [place], [place] [address] Unknown, Provider, Nursing Team, [facility] Dermatology Mohs Basal cell carcinoma of face (Primary Dx) Social History Tobacco Use [...] this encounter Patient Instructions * Patient Instructions* Mariaa Hansen - 09/11/2011 11:54 EST DERMATOLOGY - WOUND CARE INSTRUCTIONS The DRESSING/BANDAID should remain in place for 24 hours. If the dressing comes loose before then, re-tape it carefully or change the bandage. You may shower after 24 hours; remove the bandage and replace it after the shower. Do not let the forceful stream of the shower hit your wound directly. If you bathe in a tub, the bath should be brief. DISCOMFORT: Postoperative pain is usually minimal. Tylenol 325 mg as directed usually reliefs any pain you may have. Do not take Ibuprofen (Motrin, Advil), Naprosyn (Aleve), and Aspirin or aspirin- containing products as they increase the chance of bleeding for 5 days after your surgery , unless approved by your provider. BLEEDING: Attention has been given to your wound to prevent bleeding. You may notice a small amountof blood on the edges of the dressing the first day and this is NORMAL. Keep your head elevated for48 hours if the surgery was on the face or scalp. If the bleeding seems persistent and soils the dressing, apply firm, steady pressure over the dressing with gauze or a wash cloth for fifteen minutes. This is usually adequate treatment. If bleeding persists, call our office at or go to the nearest Walk in Clinic or Emergency Room. ACTIVITY: Relax and limit your physical activity for the first 48 hours after the procedure. Physical activity should also be limited if the excision included the shoulder, upper arm, and/or legs forthe next 7-10 days. WOUND CARE: ?? Wash hands with soap and water before changing the dressing. ?? Change the dressing daily and when it becomes wet The suture line should be cleansed daily with tap water. You may gently loosen any crusts with a cotton swab. Pat dry. The first day the wound may be tender and may bleed slightly or ooze a small amount clear fluid. For stubborn crusting, place a wet cloth over the wound for five minutes to soak and loosen crusts. Apply a thin layer of Vaseline over the wound. It is not recommended to use triple antibiotic ointment or other ointments as they can cause allergic reactions and do not prevent infection. Cover the wound with a Telfa (non-stick) dressing or gauze pad and a piece of paper tape. It is important to keep the wound covered. If you have sutures; the provider will inform you as to when the sutures need removed. Generally this is between 7-14 days depending on the area of the wound. If you had Liquid Nitrogen Therapy, the area may swell, form blisters and throb for 24 hours. The scabs that form should fall off within 14-21 days. It is normal to see blood in the blisters. If the blisters open, apply Vaseline until the area has healed. APPEARANCE: There may be swelling and bruising around the wound, especially near the eyes. For yourcomfort, you may apply warm, moist soaks to the bruises a few times a day, starting the third day after the procedure. You may also experience itching or ???pulling?? sensations around the wound as it heals. Healing time depends on the size, depth are of the wound. If you have concerns please callour office. If the procedure requires sutures, the suture line will be dark pink at first and the edges of the wound will be reddened. This will lighten up day by day and will be less tender. CONTACT THE OFFICE: ?? If the wound becomes increasingly red, warm to touch, increased pain, drainage with a foul odor,rapid swelling of the wound and/or if you develop a fever or chills, please call our office immediately or . Care ?? documented in this encounter Progress Notes * Dane Chinchilla MD - 09/11/2011 1223 EST Images from the original note were not included. I was physically present and immediately available in the office suite for the entire duration of this visit/procedure. I saw and examined the patient. She tolerated the first post-operative evening with minimal discomfort. The flap appears healthy and well-vascularized. Dane Chinchilla MD, JACQUELINE Programmer Analyst Division of Dermatology [facility] * Mariaa Hansen - 09/11/2011 1119 EST WOUND ASSESSMENT CC: Chief Complaint Patient presents with ??? Wound Check Right nasal ala s/p mohs Ms. Crowley is status post one day from [facility] of basal cell carcinoma on the Right nasal ala SUBJECTIVE: Patient reports no concern OBJECTIVE: There were no vitals taken for this visit. Wound edges: N/A Wound Site: looks good with no bleeding Drainage: none Graft site: N/A [place] site: N/A Flap site: pink PLAN: Wound cleaned: peroxide Dressing: vaseline dressing applied Culture obtained: No MD/PAFlyC consulted Yes FOLLOW UP Patient advised to return to follow-up care on 09/18/11 for suture removal and in two weeks for flap take down with Dr. Chinchilla as planned or sooner if concern Wound care instructions given to patient Note: I was supervised by Dr. Chinchilla who was present and immediately available in the office suite. Mariaa Hansen 09/11/2011 11:21 Mariaa Hansen 11:19 09/11/2011 documented in this encounter Plan of Treatment Not on file documented as of this encounter Visit Diagnoses Diagnosis Basal cell carcinoma of face- Primary Basal cell carcinoma of skin of other and unspecified parts of face documented in this encounter Care Teams Felt Dyeing Machine Tender Relationship Specialty Start Date End Date Kianna Dye NP [address] [place] [address] [address] [place] [id number] PCP - General 09/01/11 documented as of this encounter
--- OUTSIDE RECORDS SUMMARY | 2024-04-28 04:19 | XMS_ITS | Encounter Summary ---
Author Organization [facility] Address [address] [place] [address] Care Team Providers Care Sulfur Burner Name Role Phone Kianna Dye NP Primary Care Provider Reason for Visit * Reason Onset Date Comments Provider Referred 03/25/2018 Encounter Details Date Type Department Care Team (Late st Contact Info) Description 03/25/2018 Telephone [facility] Dermatology 5th Floor [address] [address] Ian Crockett MD [address] [place] [address], [address] [place] [address] Provider Referred Social History Tobacco Use Types Packs/Day Years Used Date Smoking Tobacco: Never Alcohol Use Standard Drinks/Week Comments Yes 0 (1 standard drink = 0.6 oz pur e alcohol) Sex and Gender Information Value Date Recorded Sex Assigned at Not on file Gender Identity Not on file Sexual Orientation Not on file documented as of this encounter Miscellaneous Notes * Telephone Encounter - Mariaa Hansen - 04/01/2018 8240 EDT Patient is scheduled to see Dr. Ellen Chisholm on 04/14/18 at 8:15 am. Patient is aware of the procedure and verbalized a good understanding. Fax sent back to referring office. * Telephone Encounter - Cuca Domingo - 03/30/2018 1126 EDT Additonal Notes and photo received. * Telephone Encounter - Cuca Vazquez - 03/30/2018 1009 EDT Notes and pathology received, photo was mailed 03/25 Cuca Vazquez 03/30/2018 10:10 * Telephone Encounter - Netta Blount - 03/25/2018 0936 EDT Reason for Referral: BCC with infultrative pattern on the right christianity Referring Provider: Joselyn Garcia MD Time frame requested: N/A Contact information: [phone] Notes and Pathology to be faxed. documented in this encounter Plan of Treatment Not on file documented as of this encounter Visit Diagnoses Not on filedocumented in this encounter Care Teams Sulfur Burner Relationship Specialty Start Date End Date Kianna Dye NP [address] [place] [address] [address] [place] [address] PCP - General 09/01/11 documented as of this encounter
--- OUTSIDE RECORDS SUMMARY | 2024-04-28 04:19 | XMS_ITS | Encounter Summary ---
Author Organization [facility] Address [address] [place] [address] Care Team Providers Care Seo Consultant Name Role Phone Unavailable Primary Care Provider Unavailabl e Encounter Details Date Type Department Care Team (Late st Contact Info) Description 02/22/2010 Results Only [facility] Laboratory Services - [facility] ([facility] [address] [place], [place] [address] Sushil Ortez MD [address] [place] [address] Social History Tobacco Use Types Packs/Day Years Used Date Smoking Tobacco: Never Assessed Sex and Gender Information Value Date Recorded Sex Assigned at Not on file Gender Identity Not on file Sexual Orientation Not on file documented as of this encounter Plan of Treatment Not on file documented as of this encounter Procedures Procedure Name Priority Date/Time Associated Diagnosis Comments SURGICAL PATHOLOGY Routine 02/22/2010 0:00 EDT documented in this encounter Results * SURGICAL PATHOLOGY (02/22/2010 0:00 EDT) Pathology Report: SURGICAL PATHOLOGY REPORT ? Reports generated via electronic interface contain original data; ? however they are lacking the format of the original report. ? Caution should be taken when reading/interpreti ng unformatted reports. ? Name: ? JENNYFER BAUTISTA ? Accession #: ? [id number] ? : ? 1940 (Age: 69) ??F ? Collect Date: ? 02/22/2010 ? Location: ? [facility] ? Receive Date: ? 02/26/2010 ? Provider: SUSHIL ORTEZ MD ? Copy to: MARIBEL L EDWARDS SVP ? Final Pathologic Diagnosis: ? A. ?Skin of shoulder, left lateral, excision: ? 1. ??Seborrheic keratosis, pigmented. ? B. ?Skin of shoulder, left medial, excision: ? 1. ??Seborrheic keratosis, pigmented. ? C. ?Skin of shoulder, right, excision: ? 1. ??Seborrheic keratosis, pigmented. ? Document reviewed and electronically signed by: ? Susanne Archuleta MD ? Report ??Date: 02/28/2010 16:58 ? By the signature above, the attending physician certifies that he/she has ? personally conducted a gross and/or microscopic examination of the described ? specimens and rendered or confirmed the above diagnosis. ? Specimen(s) Received: ? A. ?L shoulder lateral (#1) ? B. ? L shoulder medial (#2) ? C. ? Rt shoulder ? (#3) ? Clinical History: ? Indeterminate pigmented lesions ? Gross Description: ? Received in formalin labelled Jennyfer Bautista and L shoulder - 1 is a 0.9 x 0.3 cm unoriented elliptical excision of duque white skin, excised to a maximum depth of 0.6 cm. ??There is a central 0.3 x 0.2 x 0.1 cm black-lopez papule. ??The margins are inked black. ??The specimen is serially sectioned and entirely ? submitted with central sections in (A1) and tips, reverse en face in (A2). ? Received in formalin labelled Jennyfer Bautista and L shoulder - 2 is a is a 1.2 x 0.4 cm unoriented elliptical excision of duque mottled skin, excised to a ? maximum depth of 0.7 cm. ??There is a central 0.4 x 0.4 cm lopez-black and focally duque papule with irregular borders. ??The margins are inked black. ??The specimen ?? is serially sectioned and entirely submitted with central sections in (B1) and ?? tips, reverse en face in (B2). ? Received in formalin labelled Jennyfer Bautista and Penny shoulder is a 1.7 x 1.0 cm unoriented elliptical excision of duque-white skin, excised to a depth of 0.6 cm. There is a central 1.2 x 0.9 cm lopez-duque granular and scaly papule. ??The margins are inked black. ??The specimen is serially sectioned and entirely submitted with central sections in (C1) and (C2) and tips, reverse en face in (C3). (L. ? Roger)/mpl ? End of Report ? [facility] 02/22/2010 02/26/2010 17: 27 EDT Sushil Ortez MD PATHOLOGY ORDERABLE S [facility] [address] [place] [address] documented in this encounter Visit Diagnoses Not on filedocumented in this encounter
--- OUTSIDE RECORDS SUMMARY | 2024-04-28 04:19 | XMS_ITS | Encounter Summary ---
Author Organization [facility] Address [address] [place] [address] Care Team Providers Care Community Chest Officer Name Role Phone Kianna Dye NP Primary Care Provider [phone] Encounter Details Date Type Department Care Team (Late st Contact Info) Description 02/25/2022 Lab Requisition [facility] Pathology & Laboratory Medicine - [facility] [address] [place] [address] Hi Brooks, [address] [place], [place] [address] Neoplasm of unspecified behavior of bone, soft tissue, and skin Social History Tobacco Use Types Packs/Day Years [...] on file documented as of this encounter Functional Status Functional Status Response Date of [...] concentrating, remembering, or making decisions? No 04/14/2018 documented as of this encounter Plan of Treatment Not on file documented as of this encounter Procedures Procedure Name Priority Date/Time Associated Diagnosis Comments SURGICAL PATHOLOGY Today 02/21/2022 11 :10 EDT Neoplasm of unspecified behavior of bone, soft tissue, and skin documented in this encounter Results * SURGICAL PATHOLOGY (02/21/2022 11:10 EDT) Note to Patient The following pathology results have been interpreted by your pathologist and may be available to you before your health provider has had the opportunity to review them. Please allow time for your provider to receive these results and explore management options, if applicable. 02/26/2022 16:13 [facility] Final Diagnosis A. SKIN OF ANGLICAN, LEFT, SHAVE BIOPSY: - Basal cell carcinoma, nodular type. - Basal cell carcinoma present at peripheral and deep tissue edges. 02/26/2022 16:13 [facility] Attestation By the signature below, the attending physician certifies that they have 1) personally conducted a gross and/or microscopic examination of the described specimen(s), and/or personally interpreted the results of laboratory testing of the described specimen(s), and 2) personally rendered or confirmed the above diagnosis. 02/26/2022 16:13 [facility] at 1612 Microscopic Description Irregularly shaped islands of atypical basal cells infiltrate the dermis. The basal cells have scant cytoplasm and round dark nuclei. Mitotic figures and apoptotic bodies are evident. The nuclei at the periphery of the islands have a palisaded arrangement. The islands are associated with a fibromyxoid stroma and there is cleft formation between some of the islands and stroma. 02/26/2022 16:13 [facility] Clinical History History of skin cancer; clinical diagnosis code: D49.2 02/26/2022 16:13 [facility] Gross Description A. Received in formalin labelled with proper patient identification (initials H, B) and left confucianism skin is an ovoid dusky brown skin shave, 0.6 x 0.5 x 0.1 cm. The margin is inked. Bisected and entirely submitted in A1. ERA ROBBINS(ASCP) 02/26/2022 7:16 02/26/2022 16:13 EDT [facility] Performing Lab [facility] 02/26/2022 16:13 EDT [facility] Scanned Images 02/26/2022 16:13 EDT [facility] Tissue TISSUE SPECIMEN FROM SKIN / Unknown 02/21/2022 11:10 EDT 02/25/2022 17:46 EDT Hi Brooks DO PATHOLOGY ORDER KRISTEN [facility] [address] [place] [address] documented in this encounter Visit Diagnoses Diagnosis Neoplasm of unspecified behavior of bone, soft tissue, and skin documented in this encounter Care Teams Community Chest Officer Relationship Specialty Start Date End Date Kianna Dye NP [address] [place] [address] [address] [place] [id number] PCP - General 09/01/11 documented as of this encounter
--- OUTSIDE RECORDS SUMMARY | 2024-04-28 04:19 | XMS_ITS | Encounter Summary ---
Author Organization [facility] Address [address] [place] [address] Care Team Providers Care Chemical Preparer Name Role Phone Elzbieta Edwards NP Primary Care Provider [phone] Encounter Details Date Type Department Care Team (Late st Contact Info) Description 09/25/2005 Results Only [facility] - [facility] conversion [address] [place] [address] Talha Felipe MD [address] [place] [address] Social History Tobacco Use Types Packs/Day Years Used Date Smoking Tobacco: Never Assessed Sex and Gender Information Value Date Recorded Sex Assigned at Not on file Gender Identity Not on file Sexual Orientation Not on file documented as of this encounter Plan of Treatment Not on file documented as of this encounter Procedures Procedure Name Priority Date/Time Associated Diagnosis Comments SURGICAL PATHOLOGY Routine 09/25/2005 0:00 EST documented in this encounter Results * SURGICAL PATHOLOGY (09/25/2005 0:00 EST) Pathology Report: SURGICAL PATHOLOGY REPORT Reports generated via electronic interface contain original data; however they are lacking the format of the original report. Caution should be taken when reading/interpreti ng unformatted reports. Name: ? JENNYFER BAUTISTA ? Accession #: ? [id number] ? : ? 1940 (Age: 65) ??F ? Collect Date: ? 09/25/2005 ? Location: ? [facility] ? Receive Date: ? 09/25/2005 ? Provider: KEM FELIPE MD Copy to: ELZBIETA EDWARDS STAFF DEVELOPER ? Final Pathologic Diagnosis: A. ?Colon, 43 cm, polyp, biopsy: 1. ?Tubular adenoma (one piece). 2. ?No high grade dysplasia. B. ?Colon, 20 cm, polyp, biopsy: 1. ?Colonic mucosa (one piece) with surface hyperplastic changes. ??See comment. Comment: ? Deeper levels have been examined on specimen (B). ??(Dr. Valdez[place] [place] reviewed and electronically signed by: Irina Puir MD Report ??Date: 09/30/2005 14:50 By the signature above, the attending physician certifies that he/she has personally conducted a gross and/or microscopic examination of the described specimens and rendered or confirmed the above diagnosis. Specimen(s) Received: A. ?Polyp 43 cm (#1) B. ?Polyp 20 cm (#2) Clinical History: ? Polyps - 2 Gross Description: ? Received in Hollande's fixative labelled Hill and polyp 43 cm is a 0.3 x 0.2 x 0.1 cm duque-pink polypoid soft tissue, submitted in toto as (A). Received in Hollande's fixative labelled Hill and polyp 20 cm is a 0.5 x 0.1 x 0.1 cm duque-pink polypoid soft tissue, submitted in toto as (B). ??(Cedrick Lou)/[facility] End of Report [facility] 09/25/2005 09/25/2005 15: 09 EST Talha Felipe MD PATHOLOGY ORDERABLES [facility] [address] [place] [address] documented in this encounter Visit Diagnoses Not on filedocumented in this encounter Care Teams Chemical Preparer Relationship Specialty Start Date End Date Elzbieta Edwards, OLY [facility] [address] [place] [address] PCP - General 02/28/10 08/31/11 documented as of this encounter
--- OUTSIDE RECORDS SUMMARY | 2024-04-28 04:19 | XMS_ITS | Encounter Summary ---
Author Organization [facility] Address [address] [place] [address] Care Team Providers Care High [employer] Combination Teacher Name Role Phone Kianna Dye NP Primary Care Provider [phone] Reason for Visit * Reason Comments Procedure flap takedown s/p Mo hs on right nose Encounter Details Date Type Department Care Team (Late st Contact Info) Description 09/24/2011 11:00 EST Office Visit [facility] Dermatology 5th Floor [facility] [address] [place] [address] Dane Chinchilla MD [address] [place] [address] Squamous cell carcinoma, face; Neoplasm of unspecified nature of bone, soft tissue, and skin Social [...] this encounter Patient Instructions * Patient Instructions* Dane Chinchilla MD - 09/24/2011 10:52 EST DERMATOLOGY - WOUND CARE INSTRUCTIONS The [...] please call our office immediately or . ?? documented in this encounter Progress Notes * Dane Chinchilla MD - 09/24/2011 1041 EST Images from the original note were not included. FLAP TAKEDOWN PATIENT INFORMATION: Jennyfer Crowley : MRN: [id number] SURGEON: Dane Chinchilla MD PROFESSOR IN FAMILY STUDIES: Brooke Sherman PA-C Preoperative Diagnosis: Mature Pedicle Flap Preoperative Procedure: Flap Division and Inset The indication, risks, benefits and alternatives to this procedure were provided in writing and were discussed in detail with the patient and all questions were answered. The patient had no contraindications to surgery with local anesthesia. Informed consent was obtained in writing. PROCEDURE Patient position: supine Anesthesia: 1% lidocaine with epinephrine 1:100,000 local infiltration Prep: Povodine Iodine and Chlorhexidine / Isopropanol The patient was brought to the operative suite. Vital signs were obtained & placed in the chart. The patient was placed in the recumbent position on the operating table. The pedicle flap extending from the cheek to the nose was identified and cleansed with Povidine. The flap was noted to be fully viable without evidence of infection. Sterile drapes were applied. Flap viability was confirmed by capillary refill. The flap was divided proximally and distally with a #15 scalpel blade. The flap was then thinned to the superficial subcutis by sharp excision at both the donor and recipient sites, and all accumulated granulation tissue was completely removed. The proximal stump was trimmed to si ze and inset slightly. The flap was sutured flush with the surrounding skin using 5.0 Monocryl (poliglecaprone 25) buried interrupted sutures. The epidermis was then approximated with 6.0 Prolene (polypropylene). The wound edges were cleansed with peroxide and dressed with petrolatum and Telfa??. Verbal and written wound care instructions were given. The patient tolerated the procedure well and left the operating suite in good condition. Final Diagnosis: Mature Pedicle Flap Final Procedure: Pedicle Flap Division and Inset Blood Loss: minimal Operative Time: 30 minutes Complications: None NOTE: There was a 3mm pigmented papule at the right upper lateral forehead that was biopsied also at thisvisit. DDx includes blue nevus, tattoo, etc. It has become irritated in recent weeks. PUNCH BIOPSY PATIENT : Jennyfer Crowley : MRN: [id number] SURGEON: Dane Chinchilla MD The indication, risks, benefits and alternatives to this procedure were discussed in detail in withthe patient and all questions were answered. Informed consent was obtained in writing. PROCEDURE NOTE: Specimen A Procedure: Punch Biopsy Site: right, upper and lateral forehead Anesthesia: 1% lidocaine with epinephrine 1:100,000 local infiltration Prep: Povodine Iodine The lesion was prepped and anesthetized with local anesthesia. The specimen was removed with a 4.0 mm punch trephine. Hemostasis was achieved with pressure. The wound was closed with 6.0 Prolene (polypropylene) suture. A sterile dressing was applied over petrolatum ointment. Verbal and written wound care instructions were given. The specimen was submitted to pathology for histological evaluation. Dane Chinchilla MD, JACQUELINE Welder Fitter Arc Division of Dermatology [facility] documented in this encounter Miscellaneous Notes * Scanned Note-Null - Database Marketing Analyst, Scan - 10/06/2011 1330 EST documented in this encounter Plan of Treatment Not on file documented as of this encounter Visit Diagnoses Diagnosis Squamous cell carcinoma, face Squamous cell carcinoma of skin of other and unspecified parts of face Neoplasm of unspecified nature of bone, soft tissue, and skin documented in this encounter Discontinued Medications Medication Sig Discontinue Reason Start Date End Da te HYDROmorphone (DILAUDID) 2 mg tabletIndications:Squamou s cell carcinoma, face Take 1 Tab by mouth every 3 hours as needed. For Post-operative pain. Take with Food. Therapy completed 09/10/2011 09/24/2011 documented as of this encounter Care Teams High School Combination Teacher Relationship Specialty Start Date End Date Kianna Dye NP [address] [place] [phone] PCP - General 09/01/11 documented as of this encounter
--- OUTSIDE RECORDS SUMMARY | 2024-04-28 04:19 | XMS_ITS | Encounter Summary ---
Author Organization [facility] Address [address] [place] [address] Care Team Providers Care Personal Clothing Laundry Aide Name Role Phone Kianna Dye NP Primary Care Provider Reason for Visit * Reason Comments Mohs Consult bcc, nose Encounter Details Date Type Department Care Team (Late st Contact Info) Description 09/02/2011 14:30 EST Office Visit [facility] Dermatology 5th Floor [facility] [address] [place] [address] Dane Chinchilla MD [address] [place] [address] Neoplasm of unspecified nature of bone, soft tissue, and skin (Primary Dx); Nevus; Cyst Social History Tobacco Use Types Packs/Day Years Used Date Smoking Tobacco: Never Alcohol Use Standard Drinks/Week Comments Yes 0 (1 standard drink = 0.6 oz pur e alcohol) Sex and Gender Information Value Date Recorded Sex Assigned at Not on file Gender Identity Not on file Sexual Orientation Not on file documented as of this encounter Patient Instructions * Patient Instructions* Love Yuen - 09/02/2011 15:24 EST PATIENT INSTRUCTIONS FOR MOHS MICROSCOPICALLY CONTROLLED EXCISION Mohs micrographic surgery is a surgical procedure. Please bring someone with you for your surgery visit. Plan to spend at least two hours on the day of the surgery. In complicated cases you may be with us for much of the day. 1) Surgery appointment times are approximate. We do our best to remain on time, but surgery is unpredictable and your surgery may be delayed on occasion by up to an hour. 2) Plan not to be alone for at least 12 hours after surgery. 3) If you are taking Vitamin E, garlic, gingko, ginseng, or other unspecified herbal supplements please discontinue these one week prior to surgery. They can cause bleeding. 4) Stop mediation containing ibuprofen (Motrin, Advil) or naproxen (Aleve) one day prior to surgery. 5) If you are on coumadin or aspirin we will discuss with you whether or not to discontinue these prior to surgery. 6) The morning of surgery eat a normal breakfast and take any medications you normally take in the morning. Bring medication that will be needed during the day. 7) Wear clothing with buttons. Avoid pullover clothing. 8) Do not use cosmetics the day of surgery. 9) You will be given postoperative instruction following your procedure. documented in this encounter Progress Notes * Dane Chinchilla MD - 09/02/2011 1511 EST MOHS EVALUATION NOTE Chief Complaint Patient presents with ??? Mohs Consult bcc, nose Subjective: Jennyfer Crowley is a 71 y.o. year old female who is referred to me for evaluation and treatment of apresumed basal cell carcinoma of the right nasal ala by Ivana Dye MD. The patient is referred to consider Mohs surgery versus other treatment options. The patient notes that this lesion has been present for about 5 months, and reports bleeding and ulceration. The patient???s risk factors for skin cancer include hector type I or II skin. Risk factors: Pacemaker/ICD: None Anticoagulants: fish oil Total joint replacements/valves: None Allergies: None Immunosuppression: None For patient's past medical history, past surgical history, medications, medication allergies, social history and family history please please refer to the patients electronic record in [facility]. Objective: Complete physical examination of the affected area in the office today revealed a 0.3 cm x 0.4 cm eroded, pearly and pink, papule located on the right and lateral nasal ala. Careful examination of the draining lymph nodes revealed no suspicious adenopathy. Pathology: This lesion has not been biopsied Assessment: - Probable basal cell carcinoma - we will biopsy today to confirm Plan: Ms. Crowley and I discussed the meaning of the diagnosis of skin cancer and the options for treatment including curettage and electrodesiccation, radiation therapy, conventional excision, and excision by Mohs micrographic surgery. Due to the need for a high cure rate and optimum functional and aesthetic outcome, I feel that Mohs surgery is indicated. The risks of Mohs surgery and potential reconstructive surgery, including but not limited to, bleeding, scarring, infection, recurrence, injury to functionally or cosmetically important nerve structures and an unsatisfactory cosmetic result were reviewed. The patient was given an opportunity to ask questions, and I believe that all of her questions were answered satisfactorily. In addition the patient was provided with written material that describes the Mohs procedure and related matters. Ms. Crowley understands that following Mohs surgery an operative repair may be required and may involve substantial suturing. We have jointly planned to have me repair the wound at the day of surgery. She understands that following reconstruction, if performed, many months may elapse before a decisioncan be made about the final cosmetic result, and that, in some cases a revision may be necessary tooptimize the outcome. I explained to Ms. Crowley that in addition to the risk of recurrence from her skin cancer she has an increased risk of developing additional new skin cancers elsewhere. For that reason, followup with Ivana Dye, for ongoing skin surveillance examinations, after surgery, wi ll be imperative. The patient has been scheduled to undergo surgery within the next month. Note: she also was concerned about a dilated pore on her right neck. We discussed possible removal at a later date. Dane Chinchilla MD 09/02/2011 15:11 SHAVE BIOPSY PATIENT INFORMATION: Jennyfer Crowley : MRN: [id number] SURGEON: Dane Chinchilla MD The indication, risks, benefits and alternatives to this procedure were discussed in detail with the patient and all questions were answered. Informed consent was obtained in writing. PROCEDURE NOTE Specimen A Procedure: Tangential Shave Indication: Diagnostic Biopsy Site: right and lateral nasal ala Anesthesia: 1% lidocaine with epinephrine 1:100,000 local infiltration Prep: Alcohol The lesion was prepped as above and locally anesthetized. The specimen was removed by tangential shave using a Dermablade??. Hemostasis was achieved with pressure and/or aluminum chloride. The wound was cleansed with alcohol and a sterile dressing was applied over Petrolatum ointment. Verbal and written wound care instructions were given.The specimen was submitted to pathology for histological evaluation. Dane Chinchilla MD, JACQUELINE Lithograph Press Feeder Division of Dermatology [facility] * Josesito Pinoy Vivian - 09/02/2011 1443 EST A complete 12 point review of systems was obtained and reviewed. All systems are negative. Rianna Pino 09/02/2011 14:43 Dane Chinchilla MD, JACQUELINE Lithograph Press Feeder Division of Dermatology [facility] documented in this encounter Miscellaneous Notes * Scanned Note-Null - Log Inspector, Scan - 09/05/2011 1259 EST documented in this encounter Plan of Treatment Not on file documented as of this encounter Visit Diagnoses Diagnosis Neoplasm of unspecified nature of bone, soft tissue, and skin- Primary Nevus Benign neoplasm of skin, site unspecified Cyst Sebaceous cyst documented in this encounter Historical Medications * This list may reflect changes made after this encounter. Medication Sig Dispensed Refills Start Date End Date GLUC/CYRUS-MSM#1/C/ARTIS/JANN /BOR (OSTEO BI-FLEX ORAL) Take by mouth 2 times daily. CALCIUM ORAL Take 1,200 mg by mouth daily. DOCOSAHEXANOIC ACID/EPA (FISH OIL ORAL) Take 2,000 mg by mouth daily. clonAZEPAM (KLONOPIN) 0.5 mg tablet Take 0.5 mg by mouth as needed. citalopram (CELEXA) 10 mg tablet Take 10 mg by mouth 2 times daily. lamotrigine (LAMICTAL) 100 mg tablet Take 100 mg by mouth 2 times daily. levothyroxine (SYNTHROID) 88 mcg tablet Take 88 mcg by mouth daily. added in this encounter Care Teams Personal Clothing Laundry Aide Relationship Specialty Start Date End Date Kianna Dye NP [address] [place] [address] [address] [place] [id number] PCP - General 09/01/11 documented as of this encounter
--- OUTSIDE RECORDS SUMMARY | 2024-04-28 04:19 | XMS_ITS | Encounter Summary ---
Author Organization [facility] Address [address] [place] [address] Care Team Providers Care Car Repairman Name Role Phone Kianna Dye NP Primary Care Provider Reason for Visit * Reason Comments Suture / Staple Removal s/p mohs Right n trent ala Encounter Details Date Type Department Care Team (Late st Contact Info) Description 09/18/2011 9:00 EST Office Visit [facility] Dermatology 5th Floor [facility] [address] [place] [address] Unknown, Provider, Nursing Team, [facility] Dermatology Mohs Squamous cell carcinoma of skin of face (Primary Dx) Social History Tobacco [...] Instructions * Patient Instructions* Mariaa Hansen - 09/18/2011 8:39 EST DERMATOLOGY - WOUND CARE INSTRUCTIONS The [...] please call our office immediately or . documented in this encounter Progress Notes * Dane Chinchilla MD - 09/18/2011 3412 EST I was physically present and immediately available in the office suite for the entire duration of this visit/procedure. The case was discussed with the provider at the time of service. I did personally see the patient. Documentation/Note reviewed. Dane Chinchilla MD, JACQUELINE Windows Desktop Engineer Division of Dermatology [facility] * Mariaa Hansen - 09/18/2011 0839 EST WOUND ASSESSMENT CC: Chief Complaint Patient presents with ??? Suture / Staple Removal s/p mohs Right nasal ala Ms. Crowley is status post MOHS of squamous cell carcinoma on the Right Nasal Ala SUBJECTIVE: Patient reports no concern OBJECTIVE: There were no vitals taken for this visit. Wound edges: well-approximated Wound Site: Some slight swelling Drainage: none Graft site:No graft done Orange site: N/A Flap site: pink PLAN: Wound cleaned: normal saline and Vaseline gauze removed around stock area and was not replaced per Dr. Chinchilla. Dressing: vaseline dressing applied Culture obtained: No MD/PATRICIA consulted Yes FOLLOW UP Patient advised to return to follow-up care on 09/24/11 as planned or sooner if concern Wound care instructions given to patient Note: I was supervised by Dr. Chinchilla who was present and immediately available in the office suite. Mariaa Hansen 09/18/2011 8:41 Mariaa Hansen 8:39 09/18/2011 documented in this encounter Plan of Treatment Not on file documented as of this encounter Visit Diagnoses Diagnosis Squamous cell carcinoma of skin of face- Primary Squamous cell carcinoma of skin of other and unspecified parts of face documented in this encounter Care Teams Car Repairman Relationship Specialty Start Date End Date Kianna Dye NP [address] [place] [address] [address] [place] [id number] PCP - General 09/01/11 documented as of this encounter
--- OUTSIDE RECORDS SUMMARY | 2024-04-28 04:19 | XMS_ITS | Encounter Summary ---
Author Organization [facility] Address [address] [place] [address] Care Team Providers Care Finished Goods Stock Clerk Name Role Phone Elzbieta Edwards CORROSION PREVENTION METAL SPRAYER Primary Care Provider [phone] Encounter Details Date Type Department Care Team (Late st Contact Info) Description 06/08/2002 Results Only [facility] [place] conversion [address] [place] [address] Elzbieta Edwards, CORROSION PREVENTION METAL SPRAYER [address] [place] [address] Social History Tobacco Use Types [...] Priority Date/Time Associated Diagnosis Comments CYTOPATHOLOGY Routine 06/08/2002 0:00 EDT documented in this encounter Results * CYTOPATHOLOGY (06/08/2002 0:00 EDT) Pathology Report: CYTOPATHOLOGY REPORT Reports generated via electronic interface contain original data; however they are lacking the format of the original report. Caution should be taken when reading/interpreti ng unformatted reports. Name: ? JENNYFER BAUTISTA ? Accession #: ? [id number] : ? 1940 (Age: 62) ??F ?Collect Date: ? 06/08/2002 Location: ? [facility] ? Receive Date: ? 06/10/2002 Provider: ?ELZBIETA EDWARDS CORROSION PREVENTION METAL SPRAYER Copy to: ? Specimen/Source: ?ThinPrep Pap Test, Cervix/Endocervix Last Menstrual Period: ? >10 years ago ? SPECIMEN ADEQUACY ? Satisfactory for Evaluation - transformation zone component present GENERAL CATEGORIZATION ? Negative for Intraepithelial Lesion or Malignancy ? Document reviewed and electronically signed by: ? ARCADIO Kitchen(ASCP) ? Report Date: ??06/13/2002 12:31 End of Report [facility] 06/08/2002 06/10/2002 Elzbieta Edwards CORROSION PREVENTION METAL SPRAYER PATHOLOGY ORDERABLE S Performing Organization Address City/State/[place] Co de Phone Number [facility] [address] [place] [address] documented in this encounter Visit Diagnoses Not on filedocumented in this encounter Care Teams Finished Goods Stock Clerk Relationship Specialty Start Date End Date Elzbieta Edwards NP [facility] [address] [place] [phone] PCP - General 02/28/10 08/31/11 documented as of this encounter
--- OUTSIDE RECORDS SUMMARY | 2024-04-28 04:19 | XMS_ITS | Encounter Summary ---
Author Organization [facility] Address [address] [place] [address] Care Team Providers Care Renal Case Manager Name Role Phone Elzbieta Edwards INTERNATIONAL FLIGHT ATTENDANT Primary Care Provider [phone] Encounter Details Date Type Department Care Team (Late st Contact Info) Description 07/30/2004 Results Only [facility] [place] conversion [address] [place] [address] Elzbieta Edwards, INTERNATIONAL FLIGHT ATTENDANT [address] [place] [address] Social History Tobacco Use Types [...] Priority Date/Time Associated Diagnosis Comments CYTOPATHOLOGY Routine 07/30/2004 0:00 EST documented in this encounter Results * CYTOPATHOLOGY (07/30/2004 0:00 EST) Pathology Report: CYTOPATHOLOGY REPORT Reports generated via electronic interface contain original data; however they are lacking the format of the original report. Caution should be taken when reading/interpreti ng unformatted reports. Name: ? JENNYFER BAUTISTA ? Accession #: ? [id number] : ? 1940 (Age: 64) ??F ?Collect Date: ? 07/30/2004 Location: ? [facility] ? Receive Date: ? 08/01/2004 Provider: ?ELZBIETA EDWARDS INTERNATIONAL FLIGHT ATTENDANT Copy to: ? Specimen/Source: ?ThinPrep Pap Test, Cervix Last Menstrual Period: ? 10 years ? SPECIMEN ADEQUACY ? Satisfactory for Evaluation - transformation zone component present GENERAL CATEGORIZATION ? Negative for Intraepithelial Lesion or Malignancy ? Document reviewed and electronically signed by: ? Klever Awad, AVI(ASCP) ? Report Date: ??08/05/2004 11:30 End of Report [facility] 07/30/2004 08/01/2004 Elzbieta Edwards NP PATHOLOGY ORDERABLE S Performing Organization Address City/State/[facility] Co de Phone Number [facility] [address] [place] [address] documented in this encounter Visit Diagnoses Not on filedocumented in this encounter Care Teams Renal Case Manager Relationship Specialty Start Date End Date Elzbieta Edwards NP [address] [place] [address] PCP - General 02/28/10 08/31/11 documented as of this encounter
--- OUTSIDE RECORDS SUMMARY | 2024-04-28 04:19 | XMS_ITS | Encounter Summary ---
Author Organization [facility] Address [address] [place] [address] Care Team Providers Care Apartment House Manager Name Role Phone Unavailable Primary Care Provider Unavailabl e Encounter Details Date Type Department Care Team (Late st Contact Info) Description 10/15/2001 Results Only [facility] [place] [facility] [place] conversion [address] [place] [address] Talha Felipe MD [address] [place] [address] Social History Tobacco Use Types Packs/Day Years Used Date Smoking Tobacco: Never Assessed Sex and Gender Information Value Date Recorded Sex Assigned at Not on file Gender Identity Not on file Sexual Orientation Not on file documented as of this encounter Plan of Treatment Not on file documented as of this encounter Procedures Procedure Name Priority Date/Time Associated Diagnosis Comments SURGICAL PATHOLOGY Routine 10/15/2001 0:00 EST documented in this encounter Results * SURGICAL PATHOLOGY (10/15/2001 0:00 EST) Pathology Report: SURGICAL PATHOLOGY REPORT Reports generated via electronic interface contain original data; however they are lacking the format of the original report. Caution should be taken when reading/interpreti ng unformatted reports. Name: ? JENNYFER BAUTISTA ? Accession #: ? [id number] ? : ? 1940 (Age: 61) ??F ? Collect Date: ? 10/15/2001 ? Location: ? [facility] ? Receive Date: ? 10/15/2001 ? Provider: KEM FELIPE MD Copy to: MARIBEL GARRISON MD ? Final Pathologic Diagnosis: A. ?Colon, transverse, biopsy: 1. ?Tubular adenoma. B. ?Colon, 20 cm, polyp, biopsy: 1. ?Colonic mucosa with extensive cautery artifact. 2. ?Insufficient for further diagnosis. C. ?Perianal tissue, external hemorrhoid, excision: 1. ?Fibroepithelial polyp compatible with fibrotic hemorrhoid. ?? Document reviewed and electronically signed by: Anselmo Stephens MD Report ??Date: 10/19/2001 17:15 By the signature above, the attending physician certifies that he/she has personally conducted a gross and/or microscopic examination of the described specimens and rendered or confirmed the above diagnosis. Specimen(s) Received: A. ?Transverse colon polyp #1 B. ?Sigmoid at 20 cm polyp #2 C. ?External hemorrhoid #3 Clinical History: ? Colon polyps, external hemorrhoid Gross Description: ? Received in [facility]' [facility] fixative labelled Keo and #1 polyp at transverse colon are two duque-yellow irregular shaped fragments of soft tissue that measure 0.2 x 0.2 x 0.2 cm and 0.3 x 0.2 x 0.2 cm. ??They are submitted entirely as (A). Received in [facility] fixative labelled Hill and #2 polyp at 20 cm is a duque-yellow irregular shaped fragment of soft tissue that measures 0.6 x 0.3 x 0.3 cm. ??It is submitted entirely as (B). Received in [facility] fixative labelled [place] and #3 EFT hemorrhoid is a duque-yellow irregularly shaped segment of soft tissue that measures 2.5 x 2.0 x 1.3 cm. ??The external surface is covered by a duque-yellow wrinkled mucosa. ??Cut surface reveals a duque-white homogenous cut surface. ??One food service representative section is submitted as (C). ??(Dr. Archuleta-AL)/d End of Report [facility] 10/15/2001 10/15/2001 15: 34 EST Talha Felipe MD PATHOLOGY ORDERABLES [facility] [address] [place] [address] documented in this encounter Visit Diagnoses Not on filedocumented in this encounter
--- OUTSIDE RECORDS SUMMARY | 2024-04-28 04:19 | XMS_ITS | Encounter Summary ---
Author Organization [facility] Address [address] [place] [address] Care Team Providers Care Aircraft Technician Name Role Phone Kianna Dye NP Primary Care Provider [phone] Encounter Details Date Type Department Care Team (Late st Contact Info) Description 12/04/2023 Lab Requisition [facility] - Main [address] [id number] Hi Brooks, [address] [place] [address] Basal cell carcinoma of skin, unspecified Social History Tobacco Use Types Packs/Day Years [...] Date/Time Associated Diagnosis Comments SURGICAL PATHOLOGY Today 12/03/2023 11 :42 EST Basal cell carcinoma of skin, unspecified documented in this encounter Results * SURGICAL PATHOLOGY (12/03/2023 11:42 EST) Note to Patient The following pathology results have been interpreted by your pathologist and may be available to you before your health provider has had the opportunity to review them. Please allow time for your provider to receive these results and explore management options, if applicable. 12/07/2023 12:18 [facility] Final Diagnosis A. SKIN OF NASAL SIDEWALL, RIGHT, EXCISION FOR FROZEN SECTION: - Basal cell carcinoma, predominant infiltrative pattern; deep margin focally POSITIVE. See comment. B. SKIN OF NASAL SIDEWALL, RIGHT, DEEP MARGIN RE-RESECTION: - Benign fibroadipose and skeletal muscle tissue; negative for malignancy. 12/07/2023 12:18 [facility] Diagnosis Comment The predominant growth pattern in the current excision specimen is infiltrative, consisting of small, angulated nests of basal cells with associated desmoplastic stromal response. The deep margin re-resection is negative for malignancy; final margin interpreted as clear. Correlation is made with the prior biopsy report ([id number]). 12/07/2023 12:18 [facility] Attestation By the signature below, the attending physician certifies that they have 1) personally conducted a gross and/or microscopic examination of the described specimen(s), and/or personally interpreted the results of laboratory testing of the described specimen(s), and 2) personally rendered or confirmed the above diagnosis. 12/07/2023 12:18 [facility] at 1218 Intraoperative Consultation A. SKIN OF NASAL SIDEWALL, RIGHT, FROZEN SECTION: -FSA1: Levels 1+4 (12 o'clock and 6 o'clock tips en face): Tips uninvolved by tumor. -FSA2: Levels 2, 3: Deep margin focally positive. Frozen section diagnosis communicated to Dr. Hi Brooks on 12/03/2023 at 12:[address] Marquita Morgan (Frozen section performed and evaluated at [facility]) 12/07/2023 12:18 [facility] Clinical History BCC 12/07/19 12:18 [facility] Gross Description A. Received fresh labeled ? Jennyfer Crowley? and ? right nasal sidewall? is an oval excision of duque skin with the following attached orienting sutures: white = 3 o'clock, blue = 6 o'clock, black = 9 o'clock; measuring 1.0 cm 12-6 o'clock x 0.8 cm 9-3 o'clock and excised to a depth up to 0.2 cm. The 12-3-6 o'clock margin is inked blue, the 6-9-12 o'clock margin green, the deep margin orange. The specimen is serially sectioned from 12 o'clock to 6 o'clock and submitted as FSA1 through FSA2 for frozen section with the interpretation as rendered above. BLOCK ENG: A1: 12 o'clock tip, en face, portion of FSA1 control. A2-A3: Consecutive central sections, FSA2 controls. A4: 6 o'clock tip, en face, portion of FSA1 control. B. Received in formalin with, Jennyfer Crowley and, deep resection new margin and consists of a 0.8 x 0.6 x 0.3 cm portion yellow-brown soft tissue received with the new margin inked purple. The new margin is over inked black, the specimen is trisected and entirely submitted in B1. ERA BAGLEY(ASCP) 12/04/2023 10:44 12/07/2023 12:18 [facility] Performing Lab [facility] 12/07/2023 12:18 [facility] Scanned Images 12/07/2023 12:18 [facility] Tissue SPECIMEN FROM SKIN / Unknown 12/03/2023 11:42 EST 12/04/2023 9:00 EST Tissue specimen (specimen) SOFT TISSUE / Unknown 12/03/2023 12:25 EST 12/04/2023 9:00 EST Hi Brooks DO PATHOLOGY ORDER [facility] [address] [place] [address] documented in this encounter Visit Diagnoses Diagnosis Basal cell carcinoma of skin, unspecified documented in this encounter Care Teams Aircraft Technician Relationship Specialty Start Date End Date Kianna Dye NP [address] [place] [address] [address] [place] [address] PCP - General 09/01/11 documented as of this encounter
--- OUTSIDE RECORDS SUMMARY | 2024-04-28 04:19 | XMS_ITS | Encounter Summary ---
Author Organization [facility] Address [address] [place] [address] Care Team Providers Care Consumer Safety Inspector Name Role Phone Elzbieta Edwards STAINED GLASS ARTIST Primary Care Provider [phone] Encounter Details Date Type Department Care Team (Late st Contact Info) Description 08/06/2005 Results Only [facility] [place] conversion [address] [place] [address] Elzbieta Edwards, STAINED GLASS ARTIST [address] [place] [address] Social History Tobacco Use Types [...] Priority Date/Time Associated Diagnosis Comments CYTOPATHOLOGY Routine 08/06/2005 0:00 EST documented in this encounter Results * CYTOPATHOLOGY (08/06/2005 0:00 EST) Pathology Report: CYTOPATHOLOGY REPORT Reports generated via electronic interface contain original data; however they are lacking the format of the original report. Caution should be taken when reading/interpreti ng unformatted reports. Name: ? JENNYFER BAUTISTA ? Accession #: ? [id number] : ? 1940 (Age: 65) ??F ?Collect Date: ? 08/06/2005 Location: ? [facility] ? Receive Date: ? 08/07/2005 Provider: ?ELZBIETA EDWARDS STAINED GLASS ARTIST Copy to: ? Specimen/Source: ?ThinPrep Pap Test, Cervix/Endocervix, processed on [employer] Imaging System, with manual evaluation Last Menstrual Period: ? 10 years ago ? SPECIMEN ADEQUACY ? Satisfactory for Evaluation - assessment of transformation zone component not applicable ( e.g. atrophy, vaginal sample, hysterectomy) GENERAL CATEGORIZATION ? Negative for Intraepithelial Lesion or Malignancy ? Document reviewed and electronically signed by: ? AVI Hassan(ASCP) ? Report Date: ??08/12/2005 12:33 End of Report [facility] 08/06/2005 08/07/2005 Elzbieta Edwards NP PATHOLOGY ORDERABLE S Performing Organization Address City/State/[facility] Co de Phone Number [facility] [address] [place] [address] documented in this encounter Visit Diagnoses Not on filedocumented in this encounter Care Teams Consumer Safety Inspector Relationship Specialty Start Date End Date Elzbieta Edwards NP [address] [place] [phone] PCP - General 02/28/10 08/31/11 documented as of this encounter
--- OUTSIDE RECORDS SUMMARY | 2024-04-28 04:19 | XMS_ITS | Encounter Summary ---
Author Organization [facility] Address [address] [place] [address] Care Team Providers Care Firer Marine Name Role Phone Kianna Dye NP Primary Care Provider Reason for Visit * Reason Comments Basal Cell Carcinoma mormonism * Consult (Routine) - Closed Specialty Diagnoses / Procedures Referred By [facility] t Referred To Contact Dermatology Diagnoses Basal cell carcinoma (BCC) of right mormonism region Joselyn Garcia MD [address] [place] [address] [facility] [address] Dermatology [address] [place] [id number] Referral ID Status Reason Start Date Expiration Date Visits Re quested Visits Authorized [id number] Closed 1 1 Encounter Details Date Type Department Care Team (Late st Contact Info) Description 04/14/2018 8:15 EDT Office Visit [facility] Dermatology 5th Floor [address] [phone] Ellen Chisholm MD [address] [facility], [address] [place] [address] Basal cell carcinoma of right mormonism region (Primary Dx) Discharge Disposition: Auto Discharge Social History Tobacco Use Types Packs/Day Years Used Date Smoking Tobacco: Never Alcohol Use Standard Drinks/Week Comments Yes 0 (1 standard drink = 0.6 oz pur e alcohol) Sex and Gender Information Value Date Recorded Sex Assigned at Not on file Gender Identity Not on file Sexual Orientation Not on file documented as of this encounter Last Filed Vital Signs Vital Sign Reading Time Taken Comments Blood Pressure 160/89 04/14/2018 08 EDT Pulse 63 04/14/2018 08 EDT Temperature 36.1 ??C (96.9 ??F) 04/14/2018 08 EDT Respiratory Rate - - Oxygen Saturation - - Inhaled Oxygen Concentration - - Weight - - Height - - Body Mass Index - - documented in this encounter Functional Status Functional Status Response [...] No 04/14/2018 documented as of this encounter Discharge Diagnoses Diagnosis C44.319 Basal cell carcinoma of skin of other parts of face-C44.319[ICD-10-CM] documented in this encounter Patient Instructions * Patient Instructions* Ellen Chisholm MD - 04/14/2018 8:15 EDT CARE FOLLOWING YOUR SKIN SURGERY- Sutured Wound Care for the first week ACTIVITY:? No strenuous activity for 48 hours (this includes gardening or heavy lifting of any kind). Resume moderate activity in 48 hours. Walking slowly/strolling is an excellent light activity during the first week. Running and weightlifting are not. ? If your surgery was on your head or neck, elevate your head with pillows when you lie down for the first few nights (consider sleeping in a recliner if you have one), and don't bend over to warehouse order picker objects or tie shoes for a few days if you can avoid it.? Do not drink alcoholic beverages for 48 hours. DISCOMFORT: ?? Do not use aspirin or products containing aspirin for 3 days after your surgery, unless approvedby your doctor. ?? To relieve discomfort, you may take acetaminophen (for example, TylenolTM or Extra-Strength TylenolTM) as directed. It actually works very well for this kind of pain. And, if you combine this withibuprofen (AdviTM) the two together are often very helpful in relieving pain (as helpful as VicodinTM in one study). If your doctor has given you a prescription for Vicodin, Tylenol with codeine, Dila udidTM or PercocetTM, or a different medicine, use as directed. ?? After the first night (when the numbing medicine wears off and it hurts the most), pain should get slowly better, not worse. A severe increase in pain may indicate a problem. Call the office or Dr. Chisholm directly if after hours if this occurs. ?? Numbness, itching and sensitivity to temperature changes can occur after surgery and may take upto 18 months to normalize. BLEEDING, BRUISING, AND SWELLING: ?? It is normal for your wound to ooze a small amount of blood and stain the dressing. ?? Expect bruising and swelling in the area of your surgery to be the most noticeable 48 to 72 hours after surgery.?? Bruising and swelling usually begin to lessen 4 to 5 days after surgery. It should start to fade in 10-14 days. ?? You may minimize swelling by sleeping with your head elevated on several pillows. ?? If the swelling worsens rapidly or becomes increasingly tender, contact your doctor. ?? If your wound bleeds enough that the blood heavily soaks through to the outside of your bandage,do the following: ?? Leave the bandage in place. ?? Use tightly rolled up gauze or a cloth to apply direct pressure over the bandage for 20 minutes (no peeking). ?? If there is substantial bleeding that does not resolve with pressure, please call the office or proceed to the nearest emergency room or call 911 for assistance. ?? Use additional gauze and tape to maintain pressure once the bleeding has stopped. INFECTION: ?? It is normal for your wound to be slightly sore and pink. ?? If the area becomes increasingly tender, red or warm, or if you develop fever and chills, then??contact your physician. DIETARY/SMOKING RESTRICTIONS: ?? If your surgery involved your lips or mouth, avoid hot liquids and foods for the first two to three hours after surgery.?? Eat soft foods for the first 24 hours and be careful when brushing your teeth (use a child's toothbrush to avoid stretching your mouth). Take small bites and try to minimizeopening your mouth widely for 3 weeks. ?? Do not smoke for 3 weeks; smoking can be very harmful to wound healing. DAILY WOUND CARE: ?? Always wash your hands with soap and water before touching the bandage. ?? Keep the white bulky pressure bandage in place for at least 48 hours after surgery. If the bandage becomes blood tinged or loose, reinforce it with gauze & tape. (See above for management of bleeding).? GENTLY remove the bulky white pressure bandage in 48 hours, being careful not to disturb the underlying stitches. ?? Wash daily with warm clean water and soap (out of a dispenser, avoid bar soap), pat dry and apply a thin coat of petrolatum/Vaseline. Cover with a non- stick bandage and reapeat daily until surfacestitches have dissolved (usually by 7-10 days). WHEN TO CONTACT YOUR PHYSICAN: ?? Your wound continues to bleed briskly through the bandage after you have reinforced it and applied firm pressure for 20 minutes. ?? Acetaminophen and ibuprofen have not relieved your discomfort. ?? Your wound becomes increasingly sore, tender, red, or warm. ?? Your surgery site rapidly swells. CONTACT INFORMATION: To reach the transportation consultant physician: During office hours: 8:00 am - 5:00 PM Thursday through Thursday ? Call:?? [phone] ? Ask to speak with a surgery nurse AFTER HOURS/WEEKENDS/HOLIDAYS:?First call Dr. Ellen Chisholm's cell phone: [phone]; if unable to reach Dr. Chisholm, Call [phone] for the MOHS surgeon transportation consultant. LONG-TERM WOUND CARE INSTRUCTIONS *Once the bandages are removed, the scar will be red and firm (especially in the lip/chin area). This is normal and will fade in time. It might take 6-12 months. *Massaging the area will help the scar soften and fade quicker. If the scar feels lumpy or firm, begin to massage the area 6 weeks after you remove the steri strips (7 weeks after surgery). To massage apply pressure directly and firmly over the scar with the fingertips and move lengthwise along thescar. Massage the area for a few minutes 10 times a day for 2 weeks. *About 6-8 weeks after surgery it is not uncommon to see tender 'pimple-like' bumps along the scar.This is normal as the scar continues to mature and the stitches underneath the skin begin to dissolve. Do not pick or squeeze-- this will resolve on its own. Should one break open producing a small amount of drainage, apply Vaseline/white petrolatum ointment a few times a day until it is completelyhealed. *Numbness in the surgical area is expected. It might take 12-18 months for it to return to normal. You may experience tchiness, tingling and occasional sharp pains until then. These feelings are normal and will subside once the nerves have completely healed. *For cosmetic coverage a green-tinted concealer can be used to counteract redness during the initial first few months, once surface stitches have dissolved (usually by 7-10 days). Try Clinique Redness Solutions or Eucerin Redness Relief. Keep it protected from the sun for the first few months to imp rove the color of the scar. documented in this encounter Discharge Disposition Disposition Code Departure Means Destination Auto Discharge documented in this encounter Progress Notes * Concetta Valerio PA-C - 04/14/2018 0815 EDT Images from the original note were not included. MOHS EVALUATION NOTE Chief Complaint Patient presents with ??? Basal Cell Carcinoma mormonism Subjective: Jennyfer Crowley is a 77 y.o. year old female who is referred to me for evaluation and treatment of ainfiltrative basal cell carcinoma of the right mormonism by Dr. Joselyn Garcia. The patient is referred toconsider Mohs surgery versus other treatment options. The patient notes that this lesion has been present for a few months, and reports tingling. The patient???s risk factors for skin cancer include history of basal cell carcinoma and hector type I or II skin. Risk factors: Pacemaker/ICD: None Anticoagulants: None Total joint replacements/valves: None Allergies: Patient has No Known Allergies. Immunosuppression: None For full Medical, Surgical, Family, and Social histories as well as Review of Systems, Medications and Allergies please see those sections of this encounter in the electronic chart which I have personally reviewed. Objective: Complete physical examination of the affected area in the office today revealed a 1.9 cm x 1.2 cm pink, biopsy scar located on the right mormonism. Careful examination of the draining lymph nodes revealed no suspicious adenopathy. Pathology: Infiltrative basal cell carcinoma with sclerosing features, right mormonism Assessment: - Infiltrative basal cell carcinoma Plan: Ms. Crowley and I discussed the meaning of the diagnosis of skin cancer and the options for treatment including curettage and electrodesiccation, radiation therapy, conventional excision, and excision by Mohs micrographic surgery. Due to the need for a high cure rate and optimum functional and aesthetic outcome, I feel that Mohs surgery is indicated. Patient's Mohs Appropriate Use Criteria (AUC) score (0-9) is: 9. The risks of Mohs surgery and potential [...] repair the wound at the day of surgery ifneeded. She understands that following reconstruction, if performed, many months may elapse before a decision can be made about the final cosmetic result, and that, in some cases a revision may be necessary to optimize the outcome. I explained to Ms. Crowley that in addition to the risk of recurrence from her skin cancer she has an increased risk of developing additional new skin cancers elsewhere. For that reason, follow up for ongoing skin surveillance examinations, after surgery, will be imperative. The patient has been scheduled to undergo surgery today. Note: None Concetta Valerio PA-C 04/14/2018 8:08 MOHS OPERATIVE REPORT Patient Name: Jennyfer Crowley Date of Service: April 14, 2018 Surgeon: Ellen Chisholm MD Motion Picture Cameraman: PATRICIA Alexis MD Case #: [id number] Preoperative Diagnosis: infiltrative basal cell carcinoma Preoperative Procedure: Mohs micrographic surgery Location of Lesion: right mormonism Preoperative Lesion Size: 1.9 cm x 1.2 cm Preoperative Procedure: Mohs microscopically-controlled fresh tissue excision Indications: The patient presents with a infiltrative basal cell carcinoma. The pathology was reviewed prior to surgery. Because of the histologic and clinical nature of the lesion, as well as its location, the need to achieve the highest cure rate while providing maximum tissue preservation warranted tumor extirpation via microscopically-controlled excision using the Mohs fresh tissue technique.This tumor met appropriate use criteria (AUC) for Mohs surgery. Please see Mohs map for details. Alternate therapeutic options were discussed on several occasions prior to surgery. After informed consent was obtained and appropriate instruction was provided, the patient underwent tumor extirpation by the Mohs fresh tissue technique as follows: PROCEDURE - INITIAL STAGE: Patient position: supine Anesthesia: 1% lidocaine with epinephrine 1:100,000 local infiltration Prep: Chlorhexidine The patient was brought to the operative suite. The lesion was identified and was prepped in a sterile fashion. The area was infiltrated with lidocaine/epinephrine to achieve complete anesthesia and to augment hemostasis. An initial beveled excision was performed to the subcutis with a scalpel blade and tissue scissors as indicated. Two hashes were created in the specimen and within the adjacent epidermis for marking purposes. The Mohs specimen was excised in a sharp manner, and carefully placed in proper orientation on the surgical tray. Hemostasis of the operative wound was obtained with careful spot electrocoagulation. A sterile non-adherent dressing was applied to the operative wound. The Mohs tissue specimen was carefully transferred to the lab where the tissue was bisected, and color inked for orientation. The specimens were mapped and handed personally to the geotechnicial properties technician for frozen sectioning. The tissue was embedded so that the deep and surface margins lay in the same plane, and sections were made through this plane. All specimens were then evaluated histologically by me. Stage 1 findings: Wound Depth subcutis Sections Created 2 Number of Sections Containing Tumor 0 With the patient clear of microscopic tumor, surgery was considered complete. Postoperative Wound Size: 2.9 x 2.1 cm Final Diagnosis: infiltrative basal cell carcinoma Final Procedure: Mohs micrographic surgery Blood Loss: minimal Operative Time: 30 minutes Complications: None Note: none Repair: complex COMPLEX REPAIR Patient Information: Jennyfer Crowley 77 y.o. female Referring Provider: Joeslyn Garcia Surgeon: Ellen Chisholm MD Motion Picture Cameraman: Concetta Valerio PA-C Preoperative Diagnosis: infiltrative basal cell carcinoma Preoperative Procedure: Complex Linear Closure Wound Location: right mormonism Wound Dimensions: 2.9 cm x 2.1 cm INDICATIONS: The patient presents with an operative wound following tumor removal. After careful consideration and discussion of all repair options, it was determined that, given the location and nature of the defect, a multilayered complex linear closure offered the best chance for preservation of normal anatomic and functional relationships. Alternate options were discussed and the patient was encouraged toask questions, which, I believe, were answered appropriately. Informed consent was obtained in writing. After informed consent was obtained and appropriate instruction was provided, the patient underwent operative repair as follows. PROCEDURE: Patient Position: supine Anesthesia: 1% lidocaine with epinephrine 1:100,000 local infiltration Prep: Chlorhexidine The Mohs operative defect was identified, and the area was infiltrated with lidocaine/epinephrine to achieve complete anesthesia and to augment hemostasis. The area was prepped in the usual sterile fashion and was draped with sterile drapes. A linear closure was designed with care to place the operative repair within functional and cosmetic lines to minimize the postoperative distortion of normaltissues. The wound edges were prepared using a # 15 scalpel blade to precisely delineate the operative repair and were then extensively undermined with combined blunt and, as needed, sharp dissectiontaking great care to avoid functionally important vessels and nerves. Undermining was carried out at the level of the superficial fascia. Hemostasis of the operative wound was obtained with careful spot electrocoagulation, and ligature as indicated. The wound edges were then approximated using 5.0 Vicryl (polyglactin 910) buried interrupted sutures at the level of the subcutis and dermis. The epidermis was then approximated using 6.0 Fast absorbing plain gut. The final wound length was 6.6 cm Final Diagnosis: Defect following microscopically controlled excision. Final Procedure: Complex linear closure Blood Loss: minimal Operative Time: 45 minutes Complications: none Note: none Attestation statement: I saw and examined the patient with the resident/fellow. I agree with the findings and plan of care documented in the resident's/fellow's note. I personally performed the Mohs procedure and was assisted by Concetta Valerio PA-C. Concetta Valerio PA-C performed the repair under my supervision. I was present for the otto and critical components of the operative procedure and immediately available throughout. Ellen Chisholm MD MOHS SURGERY - POSTOP SUMMARY Jennyfer Crwoley is a 77 y.o. year old female who underwent Mohs surgery today 04/14/2018. The following is a summary of the operative findings: Lesion 1 infiltrative basal cell carcinoma Location right mormonism Size Preop (cm) 1.9 x 1.2 cm Size Postop (cm) 2.9 x 2.1 cm Stages 1 Depth of Excision fascia Repair complex linear repair Ms. Crowley was discharged from the operative suite in good condition. She was carefully instructed inpostoperative wound care both verbally and in writing. All sutures used were absorbable, so there is no need to return for suture removal. A post-op wound check was offered, but not desired by the patient. The patient will return for follow up with Dr. Joselyn Garcia as planned, sooner as needed. I thank Dr. Joselyn Garcia for involving me in this nice patient's care. Ellen Chisholm MD Dermatology & Mohs Plastic Parts FabricatorBark Press Operatorcombat information center officer, Dermatology Division [facility] 04/14/2018 documented in this encounter Plan of Treatment Not on file documented as of this encounter Procedures Procedure Name Priority Date/Time Associated Diagnosis Comments PROCEDURE REPORTS - SCANNED 04/26/2018 7:46 EDT documented in this encounter Results * PROCEDURE REPORTS - SCANNED (04/26/2018 7:46 EDT) 04/26/2018 7:46 EDT Scan 2 Tripe Washer PROCEDURE/MINOR NELSON GICAL ORDERABLES documented in this encounter Visit Diagnoses Diagnosis Basal cell carcinoma of right mormonism region- Primary Basal cell carcinoma of skin of other and unspecified parts of face documented in this encounter Historical Medications * This list may reflect changes made after this encounter. Medication Sig Dispensed Refills Start Date End Date atorvastatin (LIPITOR) 10 mg tablet Take 10 mg by mouth daily. losartan potassium (LOSARTAN ORAL) Take by mouth. added in this encounter Care Teams Firer Marine Relationship Specialty Start Date End Date Kianna Dye NP [address] [place] [address] [address] [place] [address] PCP - General 09/01/11 documented as of this encounter
--- OUTSIDE RECORDS SUMMARY | 2024-04-28 04:19 | XMS_ITS | Encounter Summary ---
Author Organization [facility] Address [address] [place] [address] Care Team Providers Care Digital Marketing Executive Name Role Phone Elzbieta Edwards NP Primary Care Provider [phone] Encounter Details Date Type Department Care Team (Late st Contact Info) Description 09/12/2010 Results Only [facility] Laboratory Services - [facility] ([facility] [place] [address] [place], [place] [address] Sushil Ortez MD [address] [place] [address] Social History Tobacco Use Types Packs/Day Years Used Date Smoking Tobacco: Never Assessed Sex and Gender Information Value Date Recorded Sex Assigned at Not on file Gender Identity Not on file Sexual Orientation Not on file documented as of this encounter Plan of Treatment Not on file documented as of this encounter Procedures Procedure Name Priority Date/Time Associated Diagnosis Comments SURGICAL PATHOLOGY Routine 09/12/2010 0:00 EST documented in this encounter Results * SURGICAL PATHOLOGY (09/12/2010 0:00 EST) Pathology Report: SURGICAL PATHOLOGY REPORT ? Reports generated via electronic interface contain original data; ? however they are lacking the format of the original report. ? Caution should be taken when reading/interpreti ng unformatted reports. ? Name: ? JENNYFER BAUTISTA ? Accession #: ? [id number] ? : ? 1940 (Age: 70) ??F ? Collect Date: ? 09/12/2010 ? Location: ? [facility] ? Receive Date: ? 09/12/2010 ? Provider: SUSHIL ORTEZ MD ? Copy to: ELZBIETA L EDWARDS BURRER OPERATOR ? Final Pathologic Diagnosis: ? A. ?Colon, 85 cm, biopsy: ? - Benign colonic mucosa. ? B. ?Colon, cecum, polyps, biopsies: ? - Fragments of tubulovillous adenoma. ? C. ?Colon, 20 cm, polyp, biopsy: ? - Hyperplastic polyp. ? D. ?Rectum, biopsy: ? - Hyperplastic polyp. ? Document reviewed and electronically signed by: ? JASENASEN MYRIAM MBCHB ? Report ??Date: 09/16/2010 15:21 ? By the signature above, the attending physician certifies that he/she has ? personally conducted a gross and/or microscopic examination of the described ? specimens and rendered or confirmed the above diagnosis. ? Specimen(s) Received: ? A. ?Bx 85 cm colon ? B. ? Cecal polyps x 3 ? C. ? Colon polyp 20 cm ? D. ? Rectal bx ? Clinical History: ? Hx polyps ? Gross Description: ? Received in [facility]'s fixative labelled Jennyfer Bautista and bx 85 cm ? colon are two pieces of tissue, each of which measures 0.2 x 0.2 x 0.1 cm and ?? are submitted intact as (A). ? Received in [facility]'s fixative labelled Jennyfer Bautista and cecal polyps x 3 is a 1.5 x 1.0 x 0.2 cm aggregate of multiple, firm pieces of tissue admixed ? with a few small fragments of blood clot which are submitted entirely as (B1) ?? through (B3). ? Received in [facility]'s fixative labelled Jennyfer Bautista and colon polyp 20 cm are two pieces of tissue, each of which measures 0.3 x 0.2 x 0.2 cm which are ?? submitted intact as (C). ? Received in [facility]'s fixative labelled Hill, Jennyfer and rectal bx is a ?? 0.3 x 0.2 x 0.2 cm piece of tissue which is submitted intact as (D). (J. ? Tessitore)/cjh ? End of Report ? [facility] 09/12/2010 09/12/2010 17: 52 EST Sushil Ortez MD PATHOLOGY ORDERABLE S [facility] [address] [place] [address] documented in this encounter Visit Diagnoses Not on filedocumented in this encounter Care Teams Digital Marketing Executive Relationship Specialty Start Date End Date Elzbieta Edwards, OLY [address] [place] [address] PCP - General 02/28/10 08/31/11 documented as of this encounter
--- OUTSIDE RECORDS SUMMARY | 2024-04-28 04:19 | XMS_ITS | Encounter Summary ---
Author Organization [facility] Address [address] [place] [address] Care Team Providers Care Tower Attendant Name Role Phone Kianna Dye CHOIR SINGER Primary Care Provider [phone] Encounter Details Date Type Department Care Team (Late st Contact Info) Description 09/16/2016 Results Only [facility] [phone] Dane Ortez, DO [address] [facility] [address] [place], [place] [id number] Social History Tobacco Use Types Packs/Day Years [...] Date/Time Associated Diagnosis Comments SURGICAL PATHOLOGY Routine 09/16/2016 9:49 EST documented in this encounter Results * SURGICAL PATHOLOGY (09/16/2016 9:49 EST) Pathology Report: SURGICAL PATHOLOGY REPORT Reports generated via electronic interface contain original data; however they are lacking the format of the original report. Caution should be taken when reading/interpret ing unformatted reports. Name: ? JENNYFER BAUTISTA ? Accession #: ? [id number] ? : ? 1940 (Age: 76) ??F ? Collect Date: ? 09/16/2016 ? Location: ? [facility] ? Receive Date: ? 09/17/2016 ? Provider: DANE ORTEZ DO Copy to: RICHARD DRUMMOND MD ? Final Pathologic Diagnosis: A. COLON, TRANSVERSE, POLYP, BIOPSY: - Tubular adenoma. B. COLON, SIGMOID, POLYP, BIOPSY: - Sessile serrated adenoma. Document reviewed and electronically signed by: RONNY CURRY MD Report ??Date: 09/23/2016 13:38 By the signature above, the attending physician certifies that he/she has personally conducted a gross and/or microscopic examination of the described specimens and rendered or confirmed the above diagnosis. Specimen(s) Received: A. ??Transverse colon polyp B. ??Sigmoid polyp Clinical History: Screening; colon polyp; family hx colon CA Gross Description: A. ?Received in formalin labelled with proper patient identification (initials H, B) and transverse colon polyp are two pink-duque tissues (0.3 x 0.2 x 0.2 cm and 0.3 x 0.3 x 0.2 cm). Entirely submitted in A1. B. ?Received in formalin labelled with proper patient identification (initials H, B) and sigmoid polyp is a single pink-duque tissue fragment (0.3 x 0.3 x 0.3 cm). Submitted intact in B1. ERA Vang (ASCP) 09/17/2016 11:01 AM End of Report [facility] 09/16/2016 9:49 EST 09/17/2016 9:49 EST Dane Ortez DO PATHOLOGY ORDER KRISTEN [facility] [address] [place] [address] documented in this encounter Visit Diagnoses Not on filedocumented in this encounter Care Teams Tower Attendant Relationship Specialty Start Date End Date Kianna Dye NP [address] [facility] [address] [place] [address] PCP - General 09/01/11 documented as of this encounter
--- OUTSIDE RECORDS SUMMARY | 2024-04-28 04:19 | XMS_ITS | Encounter Summary ---
Author Organization [facility] Address [address] [place] [address] Care Team Providers Care Parking Meter Servicer Name Role Phone Kianna Dye NP Primary Care Provider Reason for Visit * Reason Comments Squamous Cell Carcinoma right nasal ala - for Mohs Encounter Details Date Type Department Care Team (Late st Contact Info) Description 09/10/2011 13:30 EST Office Visit [facility] Dermatology 5th Floor [facility] [address] [place] [address] Dane Chinchilla MD [address] [place] [address] Squamous cell carcinoma, face (Primary Dx) Social [...] Sign Reading Time Taken Comments Blood Pressure 150/110 09/10/2011 1252 EST Pulse 52 09/10/2011 1252 EST Temperature 36.8 ??C (98.3 ??F) 09/10/2011 1252 EST Respiratory Rate - - Oxygen Saturation - - Inhaled Oxygen Concentration - - Weight - - Height - - Body Mass Index - - documented in this encounter Patient Instructions * Patient Instructions* Dane Chinchilla MD - 09/10/2011 12:47 EST MOHS SURGERY UNIT [facility] FOLLOWING YOUR SKIN SURGERY ACTIVITY: ?? If you have sutures (stitches), avoid strenuous activities until your sutures are removed ?? Walking is an excellent light activity during recovery. Running and weightlifting are not. ?? If your surgery was on your head or neck, elevate your head with pillows when you lie down, and do not bend over to picker feeder objects or tie your shoes. . BATHING: ?? Keep the area of your surgery dry for the first 24 hours. ?? After 24 hours, you may shower. Remove your bandage, and replace it after the shower. If you bathe in a tub, the bath should be brief. DISCOMFORT: ?? Do not use aspirin, products containing aspirin, ibuprofen (AdvilTM or MotrinTM), or naproxen (AleveTM) for five days after your surgery, unless approved by your physician. ?? To relieve discomfort, you may take acetaminophen (for example, TylenolTM or Extra-Strength TylenolTM) as directed. If your doctor has given you a prescription for Tylenol with codeine or Percocet, you may use this as directed. BLEEDING, BRUISING, AND SWELLING: ?? It is normal for your wound to ooze a small amount of blood and stain the dressing. ?? Expect bruising and swelling in the area of your surgery to be the most noticeable 48 to 72 hours after surgery. Bruising and swelling usually begin to lessen 4 to 5 days after surgery. ?? You may minimize swelling by sleeping with your head elevated on several pillows. ?? If the swelling worsens rapidly or becomes increasingly tender, contact your physician. ?? If your wound bleeds enough that the blood heavily soaks through to the outside of your bandage,do the following 1) Remove the bandage 2) If the site is slowly bleeding, but not gushing blood, then place a clean moist gauze on the wound and hold continuous pressure for 15 to 20 minutes. 3) Remove the gauze carefully, and if the bleeding has stopped, redress the wound with the suppliesgiven to you at the time of your surgery. 4) If the bleeding does not stop or if the bleeding is severe, renew pressure and contact your physician for further instructions. If there is substantial bleeding that does not resolve with pressure, please proceed to the nearest emergency room or call 911 for assistance. INFECTION: ?? It is normal for your wound to be slightly sore and pink. ?? If the area becomes increasingly tender, red or warm, or if you develop fever and chills, then contact your physician. DIETARY RESTRICTIONS: ?? If your surgery involved your lips or mouth, avoid hot liquids and foods for the first two to three hours after surgery. Eat soft foods and be careful when brushing your teeth until sutures are removed. ?? If you are a smoker try to limit your smoking as much as possible around the time of surgery. DAILY WOUND CARE: ?? Always wash your hands with soap and water before your daily wound care. ?? Gently remove your bandage 24 hours after surgery. Then change the dressing each day or wheneverit becomes wet, according to these instructions: 1) Gently clean the area with cotton swabs dipped in warm soapy water. 2) As you clean the area, remove all crusty material. If you cannot easily remove the crust, soak the area with wet gauze for 15 to 20 minutes. Do not let thick crusts or scabs form. Your wound will heal faster if you keep it clean and moist. 3) After cleaning the wound, pat the area dry with clean gauze or cotton-tipped swabs. 4) Next, use a clean cotton swab to apply bacitracin ointment or petroleum jelly. 5) Cover the area with nonstick gauze (Telfa). Secure the dressing with tape. WHEN TO CONTACT YOUR PHYSICAN: ?? Your wound continues to bleed after you have applied firm pressure for 20 minutes. ?? Acetaminophen has not relieved your discomfort. ?? Your wound becomes increasingly sore, tender, red, or warm. ?? Your surgery site rapidly swells. CONTACT INFORMATION: To reach the personal injury paralegal physician: During office hours: 8:00 am - 5:00 PM Thursday through Thursday Call: [phone] Ask to speak with a surgery nurse After hours: Call [phone] for the [facility] surgeon personal injury paralegal. WEEKENDS and HOLIDAYS call: [phone] [facility] surgeon on-call documented in this encounter Ordered Prescriptions Prescription Sig Dispensed Refills Start Date End Da te HYDROmorphone (DILAUDID) 2 mg tabletIndications:Squamous cell carcinoma, face Take 1 Tab by mouth every 3 hours as needed. For Post-operative pain. Take with Food. 20 Tab 0 09/10/2011 09/24/2011 cephALEXin (KEFLEX) 500 mg capsuleIndications:Squamou s cell carcinoma, face Take 1 Cap by mouth 3 times daily for 7 days. 21 Each 0 09/10/2011 09/17/2011 documented in this encounter Progress Notes * Architectural Job Captain, Scan - 09/12/2011 0915 EST * Sanjuanita Cortés - 09/10/2011 1253 EST Patient Education Topic: Wound Care Method: Handout, Demonstration and Verbal Taught to: Patient Barriers: None Outcomes: independent Sanjuanita Cortés 09/10/2011 12:53 Dane Chinchilla MD, JACQUELINE Rn Gastroenterology Division of Dermatology [facility] * Dane Chinchilla MD - 09/10/2011 1247 EST Images from the original note were not included. MOHS SURGERY - POSTOP SUMMARY Jennyfer Crowley is a 71 y.o. year old female who underwent Mohs surgery today 09/10/2011. The following is a summary of the operative findings: Lesion 1 squamous cell carcinoma Location right nasal ala Size Preop (cm) 0.7 x 0.4 cm Size Postop (cm) 1.0 x 0.8 cm Stages 2 Depth of Excision subcutis Repair interpolation flap Ms. Crowley was discharged from the operative suite in good condition. She was carefully instructed inpostoperative wound care both verbally and in writing. The patient will return for follow up with Dane Chinchilla MD in 2 weeks for flap takedown, sooner as needed. Note: keflex and dilaudid rx given * Dane Chinchilla MD - 09/10/2011 1247 EST MOHS OPERATIVE REPORT PATIENT NAME: Jennyfer Crowley : 1940 DATE OF SERVICE: 09/10/2011 SURGEON: Randall Chinchilla MD TECHNICAL RECRUITER: Concetta Valerio PA-C CASE # [id number] PREOPERATIVE DIAGNOSIS: squamous cell carcinoma POSTOPERATIVE DIAGNOSIS: Mohs micrographic surgery Location of Lesion: right nasal ala Preoperative Lesion Size: 0.7 x 0.4 cm Preoperative Procedure: Mohs microscopically-controlled fresh tissue excision Indications: The patient presents with a squamous cell carcinoma. Because of the histologic and clinical nature of the lesion, as well as its location, the need to achieve the highest cure rate whileproviding maximum tissue preservation warranted tumor extirpation via microscopically-controlled excision using the Mohs fresh tissue technique. Alternate therapeutic options were discussed on several [...] initial beveled excision was performed to the fibrofatty tissue with a scal pel blade and tissue scissors as indicated. A hash was created in the specimen and within the [...] to the lab where the tissue was divided, and color inked for orientation. These sections were mapped and handed personally to the ekg technician for frozen sectioning. The tissue was embedded so that the deep and surface margins lay in the same plane, and sections were made through this plane. All specimens were then evaluated histologically by me. Stage 1 findings: Wound Depth fibrofatty tissue Sections Created 2 Number of Sections Containing Tumor 2 - features of infiltrative BCC and SCC present at depth ADDITIONAL STAGES: The operative site was reidentified and anesthesia was supplemented with further lidocaine/epinephrine as needed. Further beveled incisions of lateral and deep margins were performed with a number 15scalpel blade at all sites where tumor was mapped from the previous stage. Hashes were created in the specimen and within the adjacent epidermis for marking purposes as indicated. The Mohs specimens were excised in a sharp manner, and carefully placed in proper orientation on the surgical tray. Hemostasis of the operative wound was obtained with careful spot electrocoagulation. A sterile non-adherent dressing was applied to the operative wound. Stage 2 findings: Wound Depth subcutis Sections Created 1 Number of Sections Containing Tumor 0 With the patient clear of microscopic tumor, surgery was considered complete. Postoperative Wound Size: 1.0 x 0.8 cm Final Diagnosis: squamous cell carcinoma Final Procedure: Mohs micrographic surgery Blood Loss: minimal Operative Time: 20 minutes Complications: none: Note: Nasolabial Pedicle Flap PATIENT INFORMATION: Jennyfer Crowley : MRN: 1940 [id number] SURGEON: Dane Chinchilla MD TECHNICAL RECRUITER: Sanjuanita Cortés MA; Concetta Valerio PA-C Preoperative Diagnosis: Defect following excision of Squamous Cell Carcinoma Preoperative Procedure: Nasolabial Pedicle Flap Location of Wound: Right nose Indications: Large, deep nasal wound requiring functional and aesthetic reconstruction. Wound dimensions: 1.0 x 0.8 cm After careful consideration and discussion of all repair options, it was determined that a staged nasolabial pedicle flap would provide the best functional and aesthetic result for this large operative defect. Alternate options were discussed and the patient was encouraged to ask questions, which, I believe, were answered completely. Informed consent was obtained in writing. After informed consent was obtained and appropriate instruction was provided, the patient underwent repair as follows. PROCEDURE Patient position: supine Anesthesia: 1% lidocaine with epinephrine 1:100,000 local infiltration Prep: Povodine Iodine The patient was brought to the operative suite and was placed in the recumbent position. The Mohs operative defect on the nose was identified and the surrounding tissues were evaluated for mobility and suitability for a local flap repair. This was deemed to be implausible. A skin graft was considered but was opted against due to the depth of the operative wound and the need for a more substantiverepair. The defect and surrounding tissues were anesthetized with lidocaine/epinephrine to achieve complete anesthesia and to augment hemostasis. The operative site and the medial cheek were prepped in the usual sterile fashion and draped with sterile drapes. A template of the operative defect was o btained by using sterile gauze or aluminum suture casing. A suitable nasolabial pedicle flap was outlined on the ipsilateral cheek. Following complete anesthesia the flap was elevated within the subcutis at a deep enough level to ensure adequate vascularity. Hemostatis was achieved by spot electrocoagulation. Care was taken to elevate the base of the pedicle with fibers of the levator labii superioris muscle to allow for adequate flap perfusion. Hemostasis was once again achieved by spot electrocoagulation and by ligature of any small arterial branches with 5.0 Vicryl sutures. Once a suitable length had been achieved the flap was elevated out of the way and the donor site was closed within the nasolabial fold with 5.0 Monocryl (poliglecaprone 25) buried interrupted sutures and 6.0 Prolene (polypropylene) surface sutures. The distal flap was carefully thinned of excess adipose as was feasible without compromising vascularity. The flap was then rotated about the pedicle into position and was tacked to the nose at its depth with a single 4.0 Vicryl buried suture. The margin of the flap was then carefully sewn into place with several 5.0 Monocryl (poliglecaprone 25) buried interrupted sutures and multiple 6.0 Prolene(polypropylene) surface sutures. The flap remained pink and viable throughout the entire operative procedure. Great care was taken not to place undue tension or torsion on the flap repair. The open surface of the flap was observed for bleeding and all bleeders were stopped either with careful ligation or spot electrocoagulation. The stalk of the pedicle was then wrapped with Surgicel and Vaselineimpregnated gauze and this was secured with 5.0 Prolene by suturing the dressing itself. The distalnasal repair was dressed in the usual fashion with an aseptic Telfa and gauze dressing. The patienttolerated the procedure well and left the operative suite in good condition. Final Diagnosis: Defect following microscopically controlled excision Final Procedure: Staged Nasolabial Pedicle Flap Flap Area / Size: 6.0 cm2 Blood Loss: minimal Operative Time: 45 minutes Complications: None NOTE: Dane Chinchilla MD, JACQUELINE Rn Gastroenterology Division of Dermatology [facility] documented in this encounter Miscellaneous Notes * Scanned Note-Null - Architectural Job Captain, Scan - 09/12/2011 1258 EST documented in this encounter Plan of Treatment Not on file documented as of this encounter Visit Diagnoses Diagnosis Squamous cell carcinoma, face- Primary Squamous cell carcinoma of skin of other and unspecified parts of face documented in this encounter Care Teams Parking Meter Servicer Relationship Specialty Start Date End Date Kianna Dye NP [address] [place] [address] [address] [place] [address] PCP - General 09/01/11 documented as of this encounter
--- OUTSIDE RECORDS SUMMARY | 2024-04-28 04:19 | XMS_ITS | Encounter Summary ---
Author Organization [facility] Address [address] [place] [address] Care Team Providers Care Fashion Artist Name Role Phone Elzbieta Edwards NP Primary Care Provider [phone] Encounter Details Date Type Department Care Team (Late st Contact Info) Description 09/12/2005 Results Only [facility] [place] conversion [address] [place] [address] Yemi Reich MD [address] [place], [place] [address] Social History Tobacco Use Types Packs/Day Years Used Date Smoking Tobacco: Never Assessed Sex and Gender Information Value Date Recorded Sex Assigned at Not on file Gender Identity Not on file Sexual Orientation Not on file documented as of this encounter Plan of Treatment Not on file documented as of this encounter Procedures Procedure Name Priority Date/Time Associated Diagnosis Comments SURGICAL PATHOLOGY Routine 09/12/2005 0:00 EST documented in this encounter Results * SURGICAL PATHOLOGY (09/12/2005 0:00 EST) Pathology Report: SURGICAL PATHOLOGY REPORT Reports generated via electronic interface contain original data; however they are lacking the format of the original report. Caution should be taken when reading/interpreti ng unformatted reports. Name: ? JENNYFER BAUTISTA ? Accession #: ? [id number] ? : ? 1940 (Age: 65) ??F ? Collect Date: ? 09/12/2005 ? Location: ? [facility] ? Receive Date: ? 09/15/2005 ? Provider: YEMI REICH MD Copy to: ELZBIETA EDWARDS SKIP HOIST ENGINEER ? Final Pathologic Diagnosis: ? Endometrium, biopsy: 1. ?Scant superficial strips of inactive endometrium. 2. ?Scant fragments of benign endocervical glands and squamous mucosa. ?? Document reviewed and electronically signed by: BRENDA LOCKHART MD Report ??Date: 09/16/2005 17:09 By the signature above, the attending physician certifies that he/she has personally conducted a gross and/or microscopic examination of the described specimens and rendered or confirmed the above diagnosis. Specimen(s) Received: ? Endometrial bxs Clinical History: ? Postmenopausal bleeding, no hormones; LMP: 1992 Gross Description: ? Received in formalin labelled Hill and endometrial bx is a 1.0 x 0.8 x 0.2 cm aggregate of blood tinted mucus admixed with scant soft tissue. Submitted in toto in one cassette. ??(Cedrick Aparicio)/[facility] End of Report [facility] 09/12/2005 09/15/2005 15: 13 EST Yemi Reich MD PATHOLOGY ORDERABLES [facility] [address] [place] [address] documented in this encounter Visit Diagnoses Not on filedocumented in this encounter Care Teams Fashion Artist Relationship Specialty Start Date End Date Elzbieta Edwards NP [facility] [address] [place] [address] PCP - General 02/28/10 08/31/11 documented as of this encounter
--- OUTSIDE RECORDS SUMMARY | 2024-04-28 04:19 | XMS_ITS | Encounter Summary ---
Author Organization [facility] Address [address] [place] [address] Care Team Providers Care Utilities Ground Worker Name Role Phone Kianna Dye NP Primary Care Provider [phone] Encounter Details Date Type Department Care Team (Late st Contact Info) Description 09/02/2011 Results Only [facility] Dermatology 5th [facility] [address] [place], [place] [address] Dane Chinchilla MD [address] [place] [address] Social History Tobacco Use Types Packs/Day Years [...] Date/Time Associated Diagnosis Comments SURGICAL PATHOLOGY Routine 09/02/2011 0:00 EST documented in this encounter Results * SURGICAL PATHOLOGY (09/02/2011 0:00 EST) Pathology Report: SURGICAL PATHOLOGY REPORT Reports generated via electronic interface contain original data; however they are lacking the format of the original report. Caution should be taken when reading/interpreti ng unformatted reports. Name: ? JENNYFER BAUTISTA ? Accession #: ? [id number] ? : ? 1940 (Age: 71) ??F ? Collect Date: ? 09/02/2011 ? Location: ? [facility] ? Receive Date: ? 09/02/2011 ? Provider: DANE CHINCHILLA MD Copy to: ? Final Pathologic Diagnosis: ? Skin of nasal ala, right, shave biopsy: 1. ?Squamous cell carcinoma, well-differentiate d, invasive. ??See comment. ? - Lesion extends to base of biopsy specimen. Comment: ? The features are those of an invasive squamous cell carcinoma, best appreciated on deeper sections. ??(Dr. Archuleta)/[facility] Document reviewed and electronically signed by: LAMBERT ARCHULETA MD Report ??Date: 09/05/2011 17:12 By the signature above, the attending physician certifies that he/she has personally conducted a gross and/or microscopic examination of the described specimens and rendered or confirmed the above diagnosis. Specimen(s) Received: ? Right nasal ala Clinical History: ? Bleeding papule right nasal ala; BCC vs. other; clinical diagnosis code: 239.2 Gross Description: ? Received in formalin labelled Jennyfer Bautista and right nasal ala is a 0.4 x 0.4 cm irregular shave biopsy of white skin. ??There is a central 0.2 x 0.2 x 0.1 cm circular, duque-brown, crusted papule. ??The specimen is bisected and entirely submitted in a single cassette. ??(Cedrick Martínez)/jam End of Report [facility] 09/02/2011 09/02/2011 20: 34 EST Dane Chinchilla MD PATHOLOGY ORD ERABLES [facility] [address] [place] [address] documented in this encounter Visit Diagnoses Not on filedocumented in this encounter Care Teams Utilities Ground Worker Relationship Specialty Start Date End Date Kianna Dye NP [address] [place] [address] [address] [place] [address] PCP - General 09/01/11 documented as of this encounter
--- OUTSIDE RECORDS SUMMARY | 2024-04-28 04:19 | XMS_ITS | Encounter Summary ---
Author Organization [facility] Address [address] [place] [address] Care Team Providers Care Baker Pastry Name Role Phone Kianna Dye NP Primary Care Provider Encounter Details Date Type Department Care Team (Late st Contact Info) Description 05/23/2022 Lab Requisition [facility] - Main [address] [id number] Hi Brooks, [address] [place] [address] Basal cell carcinoma of skin of other parts of face Social History Tobacco Use Types Packs/Day Years [...] Date/Time Associated Diagnosis Comments SURGICAL PATHOLOGY Today 05/22/2022 11 :19 EDT Basal cell carcinoma of skin of other parts of face documented in this encounter Results * SURGICAL PATHOLOGY (05/22/2022 11:19 EDT) Note to Patient The following pathology results have been interpreted by your pathologist and may be available to you before your health provider has had the opportunity to review them. Please allow time for your provider to receive these results and explore management options, if applicable. 05/26/2022 13:09 [facility] Final Diagnosis A. SKIN OF ZOROASTRIANISM, LEFT, EXCISION: - Organizing scar, consistent with previous biopsy site. See comment. - No residual tumor identified. 05/26/2022 13:09 [facility] Diagnosis Comment Correlation is made with the prior biopsy ([id number]). 05/26/2022 13:09 [facility] Attestation By the signature below, the attending physician certifies that they have 1) personally conducted a gross and/or microscopic examination of the described specimen(s), and/or personally interpreted the results of laboratory testing of the described specimen(s), and 2) personally rendered or confirmed the above diagnosis. 05/26/2022 13:09 [facility] at 1309 Intraoperative Consultation A. SKIN OF ZOROASTRIANISM, LEFT, FROZEN SECTION: -FSA1: 12 o'clock and 6 o'clock tips en face (levels 1+8): Tips uninvolved by tumor. -FSA2: Levels 2,3,4: Margins uninvolved by tumor. -FSA3: Levels 5,6,7: Margins uninvolved by tumor. Frozen section diagnosis communicated to Dr. Hi Brooks/Hadley Torres on 05/22/22 at 11:[address] Chip Morgan 05/22/22 ([facility]) 05/26/2022 13:09 [facility] Clinical History bcc 05/26/20 13:09 EDT [facility] Gross Description A. Received fresh labeled Jennyfer Crowley and ? Basal cell carcinoma left restoration? is an elliptical excision of duque skin with the following attached orienting sutures: white = 3 o'clock, blue = 6 o'clock, black = 9 o'clock; measuring 3.5 cm 12-6 o'clock x 1.1 cm 9-3 o'clock and excised to a depth of 0.3 cm. The 12-3-6 o'clock margin is inked blue, the 6-9-12 o'clock margin green, and the deep margin orange. The specimen is serially sectioned from 12 o'clock to 6 o'clock and submitted as FSA1, FSA2 and FSA3 for frozen section with the interpretation as rendered above. BLOCK ENG: A1: 12 o'clock tip, en face, portion of FSA1 control. A2-A7: Consecutive central sections, FSA2 and FSA3 controls. A8: 6 o'clock tip, en face, portion of FSA1 control. 05/26/2022 13:09 EDT [facility] Performing Lab [facility] 05/26/2022 13:09 EDT [facility] Scanned Images 05/26/2022 13:09 [facility] Tissue TISSUE SPECIMEN FROM SKIN / Unknown 05/22/2022 11:19 EDT 05/23/2022 11:20 EDT Hi Brooks DO PATHOLOGY ORDER KRISTEN [facility] [address] [place] [address] documented in this encounter Visit Diagnoses Diagnosis Basal cell carcinoma of skin of other parts of face documented in this encounter Care Teams Baker Pastry Relationship Specialty Start Date End Date Kianna Dye NP [address] [place] [address] [address] [place] [phone] PCP - General 09/01/11 documented as of this encounter
--- OUTSIDE RECORDS SUMMARY | 2024-04-28 04:19 | XMS_ITS | Encounter Summary ---
Author Organization [facility] Address [address] [place] [address] Care Team Providers Care Steel Analyst Name Role Phone Unavailable Primary Care Provider Unavailabl e Encounter Details Date Type Department Care Team (Late st Contact Info) Description 04/27/2001 Results Only [facility] - Maple conversion [address] [place] [address] Elzbieta Edwards, OLY [address] [place] [phone] Social History Tobacco Use Types Packs/Day Years Used Date Smoking Tobacco: Never Assessed Sex and Gender Information Value Date Recorded Sex Assigned at Not on file Gender Identity Not on file Sexual Orientation Not on file documented as of this encounter Plan of Treatment Not on file documented as of this encounter Procedures Procedure Name Priority Date/Time Associated Diagnosis Comments CYTOPATHOLOGY Routine 04/27/2001 0:00 EDT documented in this encounter Results * CYTOPATHOLOGY (04/27/2001 0:00 EDT) Pathology Report: CYTOPATHOLOGY REPORT Reports generated via electronic interface contain original data; however they are lacking the format of the original report. Caution should be taken when reading/interpreti ng unformatted reports. Name: ? JENNYFER BAUTISTA ? Accession #: ? [id number] : ? 1940 (Age: 61) ??F ?Collect Date: ? 04/27/2001 Location: ? [facility] ? Receive Date: ? 04/29/2001 Provider: ?ELZBIETA EDWARDS SCREEN PRINTING PASTER Copy to: ? Specimen/Source: ?ThinPrep Pap Test, Cervix/Endocervix Last Menstrual Period: ? 10 years ? SPECIMEN ADEQUACY ? Satisfactory for evaluation. GENERAL CATEGORIZATION ? Within Normal Limits ? Document reviewed and electronically signed by: ? Marissa Kinney, ??SCT(ASCP) ? Report Date: ??05/05/2001 08:39 End of Report [facility] 04/27/2001 04/29/2001 Elzbieta Edwards NP PATHOLOGY ORDERABLE S [facility] [address] [place] [address] documented in this encounter Visit Diagnoses Not on filedocumented in this encounter
--- OUTSIDE RECORDS SUMMARY | 2024-04-28 04:19 | XMS_ITS | Encounter Summary ---
Author Organization [facility] Address [address] [place] [address] Care Team Providers Care Head Banquet Waitress Name Role Phone Unavailable Primary Care Provider Unavailabl e Encounter Details Date Type Department Care Team (Late st Contact Info) Description 05/23/2009 Orders Only [facility] Laboratory Services - [facility] ([facility]) [address] [place], [place] [phone] Elzbieta Edwards, TELEMARKETING REPRESENTATIVE [address] [place] [phone] Social History Tobacco Use Types Packs/Day Years Used Date Smoking Tobacco: Never Assessed Sex and Gender Information Value Date Recorded Sex Assigned at Not on file Gender Identity Not on file Sexual Orientation Not on file documented as of this encounter Plan of Treatment Not on file documented as of this encounter Procedures Procedure Name Priority Date/Time Associated Diagnosis Comments CYTOPATHOLOGY Routine 05/23/2009 0:00 EDT documented in this encounter Results * CYTOPATHOLOGY (05/23/2009 0:00 EDT) Pathology Report: CYTOPATHOLOGY REPORT ? Reports generated via electronic interface contain original data; ? however they are lacking the format of the original report. ? Caution should be taken when reading/interpreti ng unformatted reports. ? Name: ? JENNYFER BAUTISTA ? Accession #: ? [id number] ? : ? 1940 (Age: 69) ??F ?Collect Date: ? 05/23/2009 ? Location: ? [facility] ? Receive Date: ? 05/25/2009 ? Provider: ?ELZBIETA EDWARDS TELEMARKETING REPRESENTATIVE ? Copy to: ? Specimen/Source: ?Pap Test, Cervix, ThinPrep Imaging System with manual ?? evaluation ? Last Menstrual Period: ? SPECIMEN ADEQUACY ? Satisfactory for Evaluation ? - assessment of transformation zone component not applicable ( e.g. atrophy, ? vaginal sample, hysterectomy) ? - scant squamous epithelial component ? GENERAL CATEGORIZATION ? Negative for Intraepithelial Lesion or Malignancy ? Document reviewed and electronically signed by: ? Nicole Adalberto, CT(ASCP) ? Report Date: ??05/31/2009 12:24 ? End of Report ? [facility] 05/23/2009 05/25/2009 Elzbieta Edwards NP PATHOLOGY ORDERABLE S [facility] [address] [place] [address] documented in this encounter Visit Diagnoses Not on filedocumented in this encounter
--- OUTSIDE RECORDS SUMMARY | 2024-04-28 04:19 | XMS_ITS | Encounter Summary ---
Author Organization [facility] Address [address] [place] [address] Care Team Providers Care Sample Processor Name Role Phone Kianna Dye NP Primary Care Provider Encounter Details Date Type Department Care Team (Late st Contact Info) Description 04/02/2022 Lab Requisition [facility] Pathology & Laboratory Medicine - [facility] [address] [place] [address] Hi Brooks, [address] [place], [place] [address] Basal cell carcinoma of skin of other [...] Date/Time Associated Diagnosis Comments SURGICAL PATHOLOGY Today 04/01/2022 13 :10 EDT Basal cell carcinoma of skin of other parts of face documented in this encounter Results * SURGICAL PATHOLOGY (04/01/2022 13:10 EDT) Note to Patient The following pathology results have been interpreted by your pathologist and may be available to you before your health provider has had the opportunity to review them. Please allow time for your provider to receive these results and explore management options, if applicable. 04/03/2022 10:08 [facility] Final Diagnosis A. SKIN OF ZOROASTRIAN, LEFT, SHAVE EXCISION: - Residual basal cell carcinoma, nodular type. - Basal cell carcinoma present at deep tissue edge. - Epidermal reparative change and dermal scar, consistent with biopsy site. 04/03/2022 10:08 [facility] Attestation By the signature below, the attending physician certifies that they have 1) personally conducted a gross and/or microscopic examination of the described specimen(s), and/or personally interpreted the results of laboratory testing of the described specimen(s), and 2) personally rendered or confirmed the above diagnosis. 04/03/2022 10:08 [facility] at 1008 Microscopic Description Irregularly shaped islands of atypical basal cells infiltrate the dermis. The basal cells have scant cytoplasm and round dark nuclei. Mitotic figures and apoptotic bodies are evident. The nuclei at the periphery of the islands have a palisaded arrangement. The islands are associated with a fibromyxoid stroma and there is cleft formation between some of the islands and stroma. The surrounding dermis has fibrosis. 04/03/2022 10:08 [facility] Clinical History Basal cell re-shave; clinical diagnosis code: C44.319 04/03/2022 10:08 [facility] Gross Description A. Received in formalin labelled with proper patient identification (initials H, B) and left amish reshave is an irregularly shaped duque-white skin shave biopsy measuring 1.2 x 1.0 x 0.1 cm in greatest dimension. Inked, serially sectioned and submitted entirely in A1-A2. ERA VAUGHN(ASCP) 04/02/2022 18:00 04/03/2022 10:08 EDT [facility] Performing Lab [facility] 04/03/2022 10:08 EDT [facility] Scanned Images 04/03/2022 10:08 EDT [facility] Tissue TISSUE SPECIMEN FROM SKIN / Unknown 04/01/2022 13:10 EDT 04/02/2022 16:27 EDT Hi Brooks DO PATHOLOGY ORDER KRISTEN [facility] [address] [place] [address] documented in this encounter Visit Diagnoses Diagnosis Basal cell carcinoma of skin of other parts of face documented in this encounter Care Teams Sample Processor Relationship Specialty Start Date End Date Kianna Dye NP [address] [place] [address] [address] [place] [address] PCP - General 09/01/11 documented as of this encounter
--- OUTSIDE RECORDS SUMMARY | 2024-04-28 04:19 | XMS_ITS | Clinical Summary ---
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 Right na james ala Basal cell carcinoma 04/14/2018 right templ e Social History Tobacco Use Types Packs/Day Years [...] on file Sexual Orientation Not on file Obstetrics History Last Filed Vital Signs Vital Sign Reading Time Taken Comments Blood Pressure 160/89 04/14/2018 0806 EDT Pulse 63 04/14/2018 0806 EDT Temperature 36.1 ??C (96.9 ??F) 04/14/2018 0806 EDT Respiratory Rate - - Oxygen Saturation - - Inhaled Oxygen Concentration - - Weight - - Height - - Body Mass Index - - Plan of Treatment Health Maintenance Due Date Last Done Comments RSV Immunization ( o r 60+ Years) (1 - 1-dose 60+ series) 2002 Fall Risk Screening 2007 COVID-19 Vaccine (2022-24 season) 2023 Care Teams Facilities Officer Relationship Specialty Start Date End Date Kianna Dye NP [address] [place] [address] [address] [place] [address] PCP - General 09/01/11
--- OUTSIDE RECORDS SUMMARY | 2024-04-28 04:19 | XMS_ITS | Encounter Summary ---
Author Organization [facility] Address [address] [place] [address] Care Team Providers Care Anglesmith Name Role Phone Kianna Dye NP Primary Care Provider [phone] Reason for Visit * Reason Onset Date Comments Wound Care 06/22/2018 Encounter Details Date Type Department Care Team (Late st Contact Info) Description 06/22/2018 Telephone [facility] Dermatology 5th [address] [phone] Ellen Chisholm MD [address] [facility], [address] [place] [address] Wound Care Social History Tobacco Use Types Packs/Day Years [...] No 04/14/2018 documented as of this encounter Miscellaneous Notes * Telephone Encounter - Quentin Pizano RN - 06/22/2018 1027 EDT Spoke with pt who reports she has short lived intermittent episodes of what feels like a spasm as well as, has headaches sometimes when she wakes up. Pt reports the headaches she's had before becauseshe is not able to sleep well at night and tends to lay awake thinking about things. Pt when asked about the wound states it has healed up very well and she thinks it looks great and others comment on how well her surgeon did. Explained wound healing and how the superficial nerves start to heal andwake up and people often feel a tingle like or indifferent feeling in the area as they do. Pt verbalizes understanding, and was instructed she may call back at anytime if she has any increasing or new concerns. * Telephone Encounter - Netta Blount - 06/22/2018 0935 EDT Patient states she had mohs on 04/14/18 and she is still having spasms of tightness and it aches. She is wondering if that is normal that long after surgery. Please advise. documented in this encounter Plan of Treatment Not on file documented as of this encounter Visit Diagnoses Not on filedocumented in this encounter Care Teams Anglesmith Relationship Specialty Start Date End Date Kianna Dye NP [address] [place] [address] [address] [place] [phone] PCP - General 09/01/11 documented as of this encounter
--- OUTSIDE RECORDS SUMMARY | 2024-04-28 04:19 | XMS_ITS | Encounter Summary ---
Author Organization [facility] Address [address] [place] [address] Care Team Providers Care Post Acute Care Nurse Practitioner Name Role Phone Elzbieta Edwards NP Primary Care Provider [phone] Encounter Details Date Type Department Care Team (Late st Contact Info) Description 05/12/2011 Results Only [facility] Laboratory Services - [facility] ([facility]) [address] [place], [place] [phone] Sushil Ortez MD [address] [place] [id number] Social History Tobacco Use Types Packs/Day Years Used Date Smoking Tobacco: Never Assessed Sex and Gender Information Value Date Recorded Sex Assigned at Not on file Gender Identity Not on file Sexual Orientation Not on file documented as of this encounter Plan of Treatment Not on file documented as of this encounter Procedures Procedure Name Priority Date/Time Associated Diagnosis Comments SURGICAL PATHOLOGY Routine 05/12/2011 0:00 EDT documented in this encounter Results * SURGICAL PATHOLOGY (05/12/2011 0:00 EDT) Pathology Report: SURGICAL PATHOLOGY REPORT ? Reports generated via electronic interface contain original data; ? however they are lacking the format of the original report. ? Caution should be taken when reading/interpreti ng unformatted reports. ? Name: ? JENNYFER BAUTISTA ? Accession #: ? [id number] ? : ? 1940 (Age: 71) ??F ? Collect Date: ? 05/12/2011 ? Location: ? [facility] ? Receive Date: ? 05/13/2011 ? Provider: SUSHIL ORTEZ MD ? Copy to: ELZBIETA L EDWARDS SERVER ? Final Pathologic Diagnosis: ? A. ?Rectum, polyp, biopsy: ? 1. ?Polypoid colorectal mucosa (one piece) with innominate groove, ? prominent lymphoid aggregate adjacent to innominate groove, and focal surface ?? epithelial hyperplastic change. ??See comment. ? B. ?Colon, 100 cm, polyp, biopsies: ? 1. ?Polypoid colonic mucosa (two pieces) with: ? - Prominent lymphoid aggregate. ? - Surface epithelial hyperplastic change. ? C. ?Colon, 120 cm, polyp, biopsies: ? 1. ?Hyperplastic polyp (two pieces). ? D. ?Colon, cecum, polyp, biopsies: ? 1. ?Tubulovillous adenoma (two pieces). ? Comment: ? Deeper sections of specimens (A) and (B) are examined. ??(Dr. Puri)/ljn ? Document reviewed and electronically signed by: ? Irina Puri MD ? Report ??Date: 05/14/2011 16:38 ? By the signature above, the attending physician certifies that he/she has ? personally conducted a gross and/or microscopic examination of the described ? specimens and rendered or confirmed the above diagnosis. ? Specimen(s) Received: ? A. ?Rectal polyp (#1) ? B. ? Bx 100 cm colon (#2) ? C. ? 120 cm colon polyp (#3) ? D. ? Cecal polyp (#4) ? Clinical History: ? Hx TVA cecum; B. ? scar ? Gross Description: ? Received in formalin labelled Keo, Jennyfer and 1 ??rectal polyp is a ?? duque-white irregular soft tissue fragment measuring 0.3 x 0.2 x 0.2 cm. ??The ? specimen is entirely submitted as (A). ? Received in formalin labelled Jennyfer Bautista and 2 ??bx 100 cm colon are two ?? duque-white irregular soft tissue fragments measuring 0.3 x 0.2 x 0.2 cm and 0.4 x 0.3 x 0.2 cm. ??The specimen is entirely submitted as (B). ? Received in formalin labelled Jennyfer Bautsita and 3 ??120 cm colon polyp are ?? two duque-pink irregular soft tissue fragments measuring 0.3 x 0.2 x 0.2 cm and ?? 0.4 x 0.2 x 0.2 cm. ??The specimen is entirely submitted as (C). ? Received in formalin labelled Jennyfer Bautista and 4 ??cecal polyp are two ? duque-pink irregular soft tissue fragments averaging 0.3 x 0.2 x 0.2 cm. ??The ? specimen is entirely submitted as (D). ??(A. Martínez)/kmm ? End of Report ? [facility] 05/12/2011 05/13/2011 8:4 7 EDT Sushil Ortez MD PATHOLOGY ORDERABLE S Performing Organization Address City/State/[facility] Co de Phone Number [facility] [address] [place] [address] documented in this encounter Visit Diagnoses Not on filedocumented in this encounter Care Teams Post Acute Care Nurse Practitioner Relationship Specialty Start Date End Date Elzbieta Edwards, OLY [facility] [address] [place] [address] PCP - General 02/28/10 08/31/11 documented as of this encounter
--- OUTSIDE RECORDS SUMMARY | 2024-04-28 04:19 | XMS_ITS | Encounter Summary ---
Author Organization [facility] Address [address] [place] [address] Care Team Providers Care Press Machine Operator Name Role Phone Kianna Dye NP Primary Care Provider Encounter Details Date Type Department Care Team (Late st Contact Info) Description 09/24/2011 Results Only [facility] Dermatology 5th Floor [facility] [address] [place], [place] [phone] Dane Chinchilla MD [address] [place] [address] Social History Tobacco Use Types [...] Date/Time Associated Diagnosis Comments SURGICAL PATHOLOGY Routine 09/24/2011 0:00 EST documented in this encounter Results * SURGICAL PATHOLOGY (09/24/2011 0:00 EST) Pathology Report: SURGICAL PATHOLOGY REPORT Reports generated via electronic interface contain original data; however they are lacking the format of the original report. Caution should be taken when reading/interpreti ng unformatted reports. Name: ? JENNYFER BAUTISTA ? Accession #: ? [id number] ? : ? 1940 (Age: 71) ??F ? Collect Date: ? 09/24/2011 ? Location: ? [facility] ? Receive Date: ? 09/24/2011 ? Provider: DANE CHINCHILLA MD Copy to: ? Final Pathologic Diagnosis: ? Skin of forehead, right upper lateral, punch biopsy: 1. ?Blue nevus. ? - Nevus does not extend to edges of punch biopsy specimen in the plane of the sections examined. Microscopic Description: ? Sections are of a low papule. ??The epidermis is generally unremarkable. The junctional melanocytes are normal in number and morphology. ??Within the reticular dermis, there is a proliferation of spindle-shaped melanocytes including bipolar and dendritic forms. ??The latter have elongate cytoplasmic processes containing abundant coarse melanin pigment. ??The nuclei are relatively uniform, elongate, and have tapered ends. ??The melanocytes are associated with thickened collagen bundles and clusters of melanophages. ??The proliferation is overall symmetric and wedge-shaped. ??(Dr. Marrero)/[facility] Document reviewed and electronically signed by: BERENICE MARRERO MD Report ??Date: 09/25/2011 13:35 By the signature above, the attending physician certifies that he/she has personally conducted a gross and/or microscopic examination of the described specimens and rendered or confirmed the above diagnosis. Specimen(s) Received: ? Right upper lateral forehead Clinical History: ? Darkening mole on forehead; blue nevus vs tattoo vs other; Clinical diagnosis code: ??239.2 Gross Description: ? Received in formalin labelled Hill, Jennyfer and upper lateral forehead is a circular punch biopsy of lopez-white hairbearing skin measuring 0.4 cm in diameter and 0.4 cm in thickness. ??There is a central 0.2 x 0.1 cm ovoid lopez macule. ??The specimen is bisected and entirely submitted in a single cassette. (Cedrick Martínez)/mpl End of Report [facility] 09/24/2011 09/24/2011 13: 26 EST Dane Chinchilla MD PATHOLOGY ORD ERABLES [facility] [address] [place] [address] documented in this encounter Visit Diagnoses Not on filedocumented in this encounter Care Teams Press Machine Operator Relationship Specialty Start Date End Date Kianna Dye NP [address] [place] [address] [address] [place] [phone] PCP - General 09/01/11 documented as of this encounter
--- OUTSIDE RECORDS SUMMARY | 2024-04-28 04:19 | XMS_ITS | Encounter Summary ---
Author Organization [facility] Address [address] [place] [address] Care Team Providers Care Supervisor Adult Education Name Role Phone iKanna Dye NP Primary Care Provider Encounter Details Date Type Department Care Team (Late st Contact Info) Description 10/16/2023 Lab Requisition [facility] Pathology & Laboratory Medicine - [facility] [address] [place] [address] Hi Brooks, [address] [place], [place] [id number] Neoplasm of unspecified behavior of bone, soft [...] Date/Time Associated Diagnosis Comments SURGICAL PATHOLOGY Today 10/16/2023 15 :30 EST Neoplasm of unspecified behavior of bone, soft tissue, and skin documented in this encounter Results * SURGICAL PATHOLOGY (10/16/2023 15:30 EST) Note to Patient The following pathology results have been interpreted by your pathologist and may be available to you before your health provider has had the opportunity to review them. Please allow time for your provider to receive these results and explore management options, if applicable. 10/20/2023 9:22 [facility] Final Diagnosis A. SKIN OF NASAL SIDEWALL, RIGHT, SHAVE BIOPSY: - Basal cell carcinoma, nodular type. - Lesion extends to biopsy base. B. SKIN OF SHOULDER, LEFT POSTERIOR, SHAVE BIOPSY: - Seborrheic keratosis, pigmented. 10/20/2023 9:22 [facility] Attestation By the signature below, the attending physician certifies that they have 1) personally conducted a gross and/or microscopic examination of the described specimen(s), and/or personally interpreted the results of laboratory testing of the described specimen(s), and 2) personally rendered or confirmed the above diagnosis. 10/20/2023 9:22 [facility] at 0922 Clinical History Clinical diagnosis code: D49.2 10/20/2023 9:22 [facility] Gross Description A. Received in formalin labelled with proper patient identification (initials H, B) and 1. Right nasal sidewall is a shave biopsy of duque speckled brown skin (0.7 x 0.6 x 0.1 cm). There is a duque rubbery papule (0.5 x 0.4 x 0.2 cm). The margin is inked blue. The tissue is trisected and entirely submitted in A1. B. Received in formalin labelled with proper patient identification (initials H, B) and 2. Left posterior shoulder is an irregular shaped shave biopsy of duque skin (2.3 x 1.2 x 0.1 cm). There is a brown-duque to white partially scaly raised lesion (2.1 x 0.9 x 0.1 cm). The margin is inked black. The tissue is serially sectioned and entirely submitted in B1 and B2. ERA APONTE(ASCP) 10/19/2023 13:32 10/20/2023 9:22 EST [facility] Performing Lab [facility] 10/20/2023 9:22 EST [facility] Scanned Images 10/20/2023 9:22 EST [facility] Tissue SPECIMEN FROM SKIN / Unknown 10/16/2023 15:30 EST 10/16/2023 22:50 EST Tissue specimen (specimen) SPECIMEN FROM SKIN / Unknown 10/16/2023 15:30 EST 10/16/2023 22:50 EST Hi Brooks DO PATHOLOGY ORDER [facility]RI[facility] [address] [place] [address] documented in this encounter Visit Diagnoses Diagnosis Neoplasm of unspecified behavior of bone, soft tissue, and skin documented in this encounter Care Teams Supervisor Adult Education Relationship Specialty Start Date End Date Kianna Dye NP [address] [place] [address] [address] [place] [id number] PCP - General 09/01/11 documented as of this encounter
[2024-04-28 09:05] LABS: Anion Gap 8.1 mmol/L (3-11); BUN 18 mg/dL (7-18); CO2 29.9 mmol/L (21.0-32.0); CREATININE 0.9 mg/dL (0.55-1.02); Calcium 9.3 mg/dL (8.5-10.1); Calculated LDL 75 mg/dL (<100); Chloride 103 mmol/L (98-107); Cholesterol 159 mg/dL (<200); Estimated GFR 63.83 (mL/min/1.73m2); Glucose 134 mg/dL (74-106); HDL Cholesterol 74 mg/dL (40-60); Potassium 3.3 mmol/L (3.5-5.1); Sodium 141 mmol/L (136-145); TSH (W/Ref FT4) 0.92 uIU/mL (0.36-3.74); Triglyceride 54 mg/dL (<150)
[2024-04-28 13:06] LABS: Lab Add On Test DONE
== END 2024-04-28 04:17 | disposition home or self-care (01) ==
LOC: LBO 04:17
PROVIDERS: PCP Student in an Organized Health Care Education/Training Program; Visit Provider Student in an Organized Health Care Education/Training Program
DX: R73.09 Other abnormal glucose (principal); I10 Essential (primary) hypertension; E03.9 Hypothyroidism, unspecified; G47.9 Sleep disorder, unspecified; E87.6 Hypokalemia
CPT/HCPCS: 36415; 80048; 80061; 83036; 83735; 84443

== ENCOUNTER 2025-08-31 01:46 | Outpatient (CLI) | payer MEDICARE, SELFPAY ==
[2025-08-31 10:51] LABS: TSH (W/Ref FT4) 0.56 uIU/mL (0.55-4.78)
== END 2025-08-31 01:47 | disposition home or self-care (01) ==
LOC: LBO 01:47
PROVIDERS: PCP Family Medicine; Referring Provider Family Medicine; Visit Provider Family Medicine
DX: E03.9 Hypothyroidism, unspecified (principal)
CPT/HCPCS: 36415; 84443